=== PATIENT | male | born 1955 | race Caucasian/White ===

== ENCOUNTER → 2020-06-14 09:59 | Outpatient (CLI) | payer MEDICARE, OTHER, SELFPAY ==
[2020-06-14 10:28] LABS: D-Dimer Quantitative (DVT/PE) 0.32 FEU/ug/m (0.27-0.49)
== END ==
PROVIDERS: PCP Family Medicine; Referring Provider Family Medicine; Visit Provider Family Medicine
DX: R07.9 Chest pain, unspecified (principal)
CPT/HCPCS: 85379

== ENCOUNTER → 2023-01-22 | Outpatient (CLI) | payer SELFPAY ==
--- NOTE | 2023-01-22 11:45 | RAD_ITS ---
STUDY: X-RAY - LUMBAR SPINE REASON FOR EXAM: Male, 67 years old. Pain. TECHNIQUE: Thyroid weightbearing view(s) of the lumbar spine were obtained. COMPARISON: None FINDINGS: Normal lumbar lordosis. No substantial scoliosis. Normal alignment of the vertebrae. Diffuse moderate lower thoracic and lumbosacral facet sclerosis. Intervertebral disc space narrowing in the lower thoracic spine and at L4-5 and L5-S1. Osteophytes most marked at T11-T12 and L4-L5. Normal soft tissues. RAD/L/S Spine Min 4 Views IMPRESSION: Mild lower thoracic and lumbosacral spondylosis as described. Electronically Signed: Storm Logan MD at 12:57 EST ,
== END | disposition home or self-care (01) ==
PROVIDERS: PCP Family Medicine; Referring Provider Chiropractor Orthopedic; Visit Provider Chiropractor Orthopedic
DX: M47.814 Spondylosis without myelopathy or radiculopathy, thoracic region (principal); M47.817 Spondylosis without myelopathy or radiculopathy, lumbosacral region
CPT/HCPCS: 72110

== ENCOUNTER 2024-07-22 09:14 | Emergency (ER) | payer MEDICARE, OTHER, SELFPAY ==
[2024-07-22 09:16] VITALS: BP 170/79; PULSE 62; RESP 16; TEMP 36.8; O2SAT 98; BMI 32.4
--- NOTE | 2024-07-22 09:31 | CT_ITS ---
PROCEDURE: BRAIN/HEAD WITHOUT CONTRAST 07/22/2024 REASON FOR EXAM: LIGHTHEADED Dizziness. TECHNIQUE: Head CT without intravenous contrast. Coronal and Sagittal reconstruction series were provided. One or more dose reduction techniques were used (e.g., Automated exposure control, adjustment of the mA and/or kV according to patient size, use of iterative reconstruction technique. RADIATION DOSE SUMMARY: CTDlvol: 44.99 mGy DLP: 812.98 mGycm COMPARISON: None FINDINGS: Brain: Within normal limits for age CSF Spaces: Normal Sinuses/Mastoids: Clear at visualized levels Bones: Unremarkable CT/Brain/Head without Contrast IMPRESSION: NORMAL NONCONTRAST HEAD CT. [facility]
--- NOTE | 2024-07-22 09:32 | EKG12_ITS ---
Test Reason : DIZZINESS Blood Pressure : */* mmHG Vent. Rate : 66 BPM Atrial Rate : 66 BPM P-R Int : 142 ms QRS Dur : 80 ms QT Int : 356 ms P-R-T Axes : 62 32 35 degrees QTcB Int : 373 ms Normal sinus rhythm Normal ECG Confirmed by AMADO BLACKMAN, GERARDO ([id number]), film editor supervisor NGHIA CASTILLO ([id number]) on 07/23/2024 10:26:29 AM Referred By: Confirmed By: GERARDO FISCHER MD
[2024-07-22 09:38] VITALS: BP 144/78; BP 154/93; BP 156/93; PULSE 62; PULSE 65; PULSE 68
[2024-07-22] MEDS: Meclizine HCl 25 MG Tablet PO (09:42)
[2024-07-22] MEDS: 0.9% Normal Saline (1000mL) 1,000 ML 1000 ML IV (09:43)
[2024-07-22] MEDS: Ondansetron 4 MG/2 ML Vial IV (09:43)
--- NOTE | 2024-07-22 09:43 | EX.ED.DYSGE1 ---
HPI History of Present Illness Chief Complaint: Dizziness Narrative Narrative: Chief complaint and HPI: Dizziness. 68-year-old male with past medical history of HTN and HLD presents for evaluation of dizziness. 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 States he was working outside a lot that day. States around 1600 he became dizzy. He describes his dizziness as lightheadedness. Not room spinning. States he intermittently feels woozy. He states he drank 3 cups of coffee yesterday. No water. States he also got fast food with a large soda. Patient states that he has continued to feel intermittently lightheaded which is why he presents for evaluation. He states the lightheadedness is intermittent and not constant. Lightheadedness mostly occurs with intermittent walking. Patient states that he has not ate or drink anything yet today. He denies any fever, chills, headache, vision changes, tinnitus, ear pain, URI symptoms, shortness of breath, chest pain, abdominal pain, vomiting, dysuria, diarrhea, constipation, neurological deficit, weakness, numbness/tingling. States that he gets intermittently nauseous when he gets lightheaded. Denies any syncope. Review of systems: See HPI Medications: As listed on the chart Allergies: As listed on the chart PFSH: Per chart Vital signs: As listed on the chart. Reviewed. Physical exam: Gen: A&O x4, NAD Head: Normocephalic, atraumatic Eyes: No sclera icterus, conjunctiva clear, PERRL, EOMI, no nystagmus, no visual field deficit ENT: Mildly dry mucous membranes, No facial asymmetry Neck: Trachea midline, No JVD, no carotid bruit, full range of motion CV: RRR, no murmurs, no peripheral edema Resp: Lungs CTA BL, no w/r/c GI: Abd soft, non-distended, non-tender, no r/r/g Musc: Full ROM, no deformity, strength +5/5 in all extremities, no pronator drift, no ataxia with gait/finger-nose testing/[id number]-[id number] testing Skin: Warm, dry, intact Neuro: Alert, oriented, grossly intact, sensation intact, no focal deficits Psych: Cooperative, appropriate mood and affect [facility] Medical History (Updated 07/22/24 @ 09:33 by Joaquin Ayala) HTN (hypertension) Home Medications ?Medication ?Instructions ?Recorded ?Last Taken ?Type atorvastatin 10 mg tablet 10 mg PO DAILY cholesterol 07/22/24 07/22/24 History lisinopril 20 mg tablet 20 mg PO DAILY 07/22/24 07/22/24 History Allergy/AdvReac Type Severity Reaction Status Date / Time No Known Allergies Allergy Verified 07/22/24 09:16 Social History Smoking Status: Never smoker EXAM Physical Exam Const Vital Signs: 07/22/24 09:16 07/22/24 09:38 07/22/24 10:29 Temperature 98.3 F Temperature Source Oral Pulse Rate 62 58 L Pulse Rate [Lying] 68 Pulse Rate [Sitting (for 1 minute prior to obtaining)] 62 Pulse Rate [Standing (for 1 minute prior to obtaining)] 65 Respiratory Rate 16 15 Blood Pressure 170/79 H 156/94 H Blood Pressure [Lying] 144/78 H Blood Pressure [Sitting (for 1 minute prior to obtaining)] 156/93 H Blood Pressure [Standing (for 1 minute prior to obtaining)] 154/93 H Blood Pressure Mean 109 114 Blood Pressure Mean [Lying] 100 Blood Pressure Mean [Sitting (for 1 minute prior to obtaining)] 114 Blood Pressure Mean [Standing (for 1 minute prior to obtaining)] 113 Pulse Ox 98 97 Oxygen Delivery Method Room Air 07/22/24 11:00 Temperature Temperature Source Pulse Rate 56 L Pulse Rate [Lying] Pulse Rate [Sitting (for 1 minute prior to obtaining)] Pulse Rate [Standing (for 1 minute prior to obtaining)] Respiratory Rate 18 Blood Pressure 146/83 H Blood Pressure [Lying] Blood Pressure [Sitting (for 1 minute prior to obtaining)] Blood Pressure [Standing (for 1 minute prior to obtaining)] Blood Pressure Mean 104 Blood Pressure Mean [Lying] Blood Pressure Mean [Sitting (for 1 minute prior to obtaining)] Blood Pressure Mean [Standing (for 1 minute prior to obtaining)] Pulse Ox 98 Oxygen Delivery Method Room Air MDM MDM MDM Narrative Medical decision making narrative: 68-year-old male with past medical history of HTN and HLD presents for evaluation of dizziness. Describes the dizziness as lightheadedness and not vertigo. Lightheadedness is intermittent in and not constant. Endorses little p.o. intake and hydration. Denies any associated symptoms other than nausea with the lightheadedness. Differential diagnosis includes but is not limited to dehydration, electrolyte abnormality, orthostatic hypotension, anemia. Low suspicion for UTI, ACS, arrhythmia, intracranial abnormality. Not consistent with CVA. Patient has no ataxia or neurological deficits. Orthostatic vital signs will be obtained. NS bolus, Zofran, meclizine ordered for symptoms. Laboratory workup ordered including CT head and urine. Orthostatic vital signs negative for blood pressure and heart rate however with standing patient did endorse some lightheadedness which she did not have when lying down or sitting. EKG and chest x-ray reviewed see below. CBC without leukocytosis or anemia. BMP unremarkable without significant electrolyte abnormality or CHARLINE. Troponin unremarkable. UA negative for UTI and ketones. CT of the brain shows no acute intracranial abnormality. On reevaluation, patient states his dizziness has almost completely resolved. He ambulated in our emergency department without difficulty. States his dizziness has resolved. I suspect patient's dizziness was likely secondary to mild dehydration given that he has not been drinking much water and drinking a lot of coffee. He is also skipping meals. I told him that he needs to make sure that he is drinking water and eating all his meals. Return precautions explained. Follow-up with PCP. He confirmed understanding of the plan. EKG: Interpreted by me/EM physician: EKG shows normal sinus rhythm without any acute ischemic changes. Heart rate 66. Diagnostic: Interpreted by me/EM physician: Chest x-ray without pneumonia, effusion, cardiomegaly, pneumothorax. Radiology in agreement. Impression: 1. Dizziness, suspect mild dehydration Lab Data Labs: Laboratory Results - last 24 hr 07/22/24 07/22/24 09:26 09:52 WBC 6.0 RBC 5.04 Hgb 15.8 Hct 46.8 MCV 92.9 MCH 31.3 MCHC 33.8 RDW Std Deviation 42.9 RDW Coeff of Cosme 12.5 Plt Count 222 MPV 10.1 Immature Gran % (Auto) 0.300 Neut % (Auto) 50.6 Lymph % (Auto) 34.4 [place] % (Auto) 11.2 H Eos % (Auto) 2.8 Baso % (Auto) 0.7 Absolute Neuts (auto) 3.0 Absolute Lymphs (auto) 2.06 Nucleated RBC % 0 Sodium 139 Potassium 4.5 Chloride 103 Carbon Dioxide 24.9 Anion Gap 11 BUN 16 Creatinine 1.08 Estim Creat Clear Calc 72.79 Est GFR (MDRD) Non-Af 74 BUN/Creatinine Ratio 14.4 Glucose 114 H Calcium 9.5 Troponin T High Sens 11 Urine Color Yellow Urine Clarity Clear Urine pH 6.0 Ur Specific [place] 1.010 Urine Protein Negative Urine Glucose (UA) Normal Urine Ketones Negative Urine Occult Blood 10 H Urine Nitrite Negative Urine Bilirubin Negative Urine Urobilinogen Normal Ur Leukocyte Esterase Negative Urine RBC 0 SEEN Urine WBC 0 SEEN Ur Squamous Epith Cells 0 SEEN Urine Bacteria 0 SEEN Urine Mucus 0 SEEN Radiography Diagnostic Testing: Clinical Impression(s) from Imaging Studies Brain CT 07/22/24 09:31 IMPRESSION: NORMAL NONCONTRAST HEAD CT. Reading Location: [facility] Chest X-Ray 07/22/24 10:05 IMPRESSION: No acute process is identified in the chest. [facility] Dis[facility] Triage Chief Complaint: Dizziness ED Provider: Ted Mendez Dx/Rx/DC Orders Instructions: ED Dizziness, Uncertain Cause Prescriptions: No Action atorvastatin 10 mg tablet 10 mg PO DAILY lisinopril 20 mg tablet 20 mg PO DAILY Primary Care Provider: Suresh Honeycutt Referrals: Suresh Honeycutt MD [Primary Care Provider] - 3-5 Days Activity Restrictions/Additional Instructions: Follow-up with primary care physician. Return back to the ED if symptoms change or worsen. Make sure that you are eating meals and drinking plenty of water. Print Language: Greek Disposition Disposition: Home, Self Care
[2024-07-22 09:54] LABS: Absolute Lymphocyte Count 2.06 X10^3/uL (0.83-4.51); Basophil# 0.04 X10^3/uL; Basophil% 0.7 % (0-1); Eosinophil# 0.17 X10^3/uL; Eosinophils% 2.8 % (0-5); Hematocrit 46.8 % (40-54); Hemoglobin 15.8 g/dL (13.0-16.5); Lymphocyte # 2.06 X10^3/ul (0.83-4.51); Lymphocyte % 34.4 % (19-41); Mean Corp Hgb Conc 33.8 g/dL (32-36); Mean Corpuscular Hgb 31.3 pg (27.0-32.0); Mean Corpuscular Volume 92.9 fL (80-94); Mean Platelet Vol. 10.1 fl (6.2-12.0); Monocyte# 0.67 X10^3/uL; Monocyte% 11.2 % (0-10); NRBC Flagged by Analyzer 0 % (0-5); Neutrophil # 3.03 X10^3/uL (2.7-7.7); Neutrophil % 50.6 % (47-70); Platelet Count 222 K/mm3 (150-450); RBC Distribution Width CV 12.5 % (11.6-14.6); RBC Distribution Width SD 42.9 fl (35.1-43.9); Red Blood Count 5.04 M/mm3 (4.6-6.2)
[2024-07-22 10:00] LABS: Bacteria 0 SEEN /hpf (None Seen); Mucous, Urine 0 SEEN /hpf (<or=2+); Red Blood Cells-Urine 0 SEEN /hpf (0-5); Squamous Epithelial Cells - UA 0 SEEN /hpf (0-5); White Blood Cells 0 SEEN /hpf (0-5)
--- NOTE | 2024-07-22 10:05 | RAD_ITS ---
PROCEDURE: CHEST PA AND LATERAL 07/22/2024 REASON FOR EXAM: LIGHTHEADED TECHNIQUE: Frontal and lateral views of the chest. COMPARISON: None FINDINGS: Heart size and mediastinal configuration are within normal limits. Focal eventration of the right hemidiaphragm is noted. There is no focal infiltrate or consolidation. There is no pneumothorax or effusion. There is no acute bony abnormality. Aortic calcifications are visible. RAD/Chest PA and Lateral IMPRESSION: No acute process is identified in the chest. Reading Location: [facility]
[2024-07-22 10:13] LABS: Color, Urine Yellow (Yellow); Glucose, Dipstick Normal (Normal); Ketone-Dipstick Negative (Negative); Leukocyte Esterase-Dipstick Negative /ul (Negative); Nitrite-Dipstick Negative (Negative); Occult Blood-Urine 10 /ul (Negative); Protein-Dipstick Negative (Negative); Urine Bilirubin Dipstick Negative (Negative); Urine Clarity Clear (Clear); Urine Urobilinogen Normal (Normal)
[2024-07-22 10:29] VITALS: BP 156/94; PULSE 58; RESP 15; O2SAT 97
[2024-07-22 10:43] LABS: Troponin T High Sensitivity 11 ng/L (<=22)
[2024-07-22 10:44] LABS: Anion Gap 11 (5-15); BUN 16 mg/dL (4-19); BUN/Creat Ratio 14.4 RATIO (10-20); Calcium,Total 9.5 mg/dL (7.6-11.0); Carbon Dioxide 24.9 mmol/L (21.0-32.0); Chloride 103 mmol/L (98-108); Creatinine, Serum 1.08 mg/dL (0.70-1.20); EST Glomerular Filtration Rate 74 (>60); Estimated Creatinine Clearance 72.79 ml/min (50-250); Glucose 114 mg/dL (70-99); Potassium 4.5 mmol/L (3.3-5.1); Sodium Level 139 mmol/L (133-145)
[2024-07-22 11:00] VITALS: BP 146/83; PULSE 56; RESP 18; O2SAT 98
[2024-07-22 11:55] VITALS: BP 141/83; PULSE 87; RESP 18; TEMP 36.5; O2SAT 97
== END 2024-07-22 11:56 | disposition home or self-care (01) ==
PROVIDERS: Emergency Provider Surgery; PCP Family Medicine; Visit Provider Surgery
DX: R42 Dizziness and giddiness (principal); I10 Essential (primary) hypertension; E78.5 Hyperlipidemia, unspecified
CPT/HCPCS: 70450; 71046; 80048; 81001; 84484; 85025; 93005; 96361; 96374; 99285; A4216; J2405

== ENCOUNTER 2025-02-14 10:45 | Emergency (ER) | payer MEDICARE, OTHER, SELFPAY ==
[2025-02-14 10:46] VITALS: BP 176/95; PULSE 64; RESP 16; TEMP 36.3; O2SAT 98; BMI 32.1
--- NOTE | 2025-02-14 10:54 | EDS_ITS ---
HPI History of Present Illness Chief Complaint: Dizziness [facility] Medical History (Updated 02/14/25 @ 11:03 by Maura Moore) Skin cancer Hyperlipemia HTN (hypertension) Home Medications ?Medication ?Instructions ?Recorded ?Last Taken ?Type atorvastatin 10 mg tablet 10 mg PO DAILY cholesterol 0 07/22/24 07/22/24 History lisinopril 20 mg tablet 20 mg PO DAILY 07/22/24 05/2 0 History GLYCETRA 1 tab PO DAILY 02/14/25 Unkn own History Allergy/AdvReac Type Severity Reaction Status Date / Time No Known Allergies Allergy Verified 02/14/25 10:50 Family History no significant family his Surgical History (Updated 02/14/25 @ 11:03 by Maura Moore) H/O hernia repair Social History (Updated 02/14/25 @ 11:03 by Maura Moore) household members: spouse housing: house Smoking Status: Never smoker EXAM Physical Exam Const Vital Signs: 02/14/25 10:46 02/14/25 12:30 02/14/25 14:14 Temperature 97.3 F L 98.2 F Temperature Source Oral Pulse Rate 64 65 74 Respiratory Rate 16 14 15 Blood Pressure 176/95 H 143/86 H 132/78 H Blood Pressure Mean 122 105 96 Pulse Ox 98 100 100 Oxygen Delivery Method Room Air MDM MDM MDM Narrative Medical decision making narrative: HISTORY OF PRESENT ILLNESS: Chief complaint: Dizziness 69-year-old male presents with dizziness. Notes fall and head trauma that occurred 2 days prior to arrival. He denies loss of consciousness. Denies taki ng blood thinners. He further states his last known well was greater than 4 hours prior to arrival. He notes no symptoms yesterday but noted the left side of this morning began having dizziness specifically with head movement. Notes he took meclizine this morning no relief. Denies vomiting. Denies bleeding diathesis. Denies chest pain. Denies palpitations or syncope. REVIEW OF SYSTEMS: Pertinent positives: Dizziness, head trauma Pertinent negatives: As per HPI PHYSICAL EXAM: Nursing triage notes reviewed, Vital signs reviewed Constitutional: please see mdm HENT: MMM, atraumatic, no lacs Eyes: Pupils equal round and reactive to light, Extraocular muscles intact Neck: No stridor, no JVD, full neck ROM Lungs: Clear to auscultation, No wheezing or rales. No increased work of b reathing, no conversational dyspnea, no accessory muscle use, no nasal flaring. No respiratory distress noted Heart: Regular rate and rhythm, No murmurs, No rubs and No gallops, 2+ distal pulses (radial, femoral, posterior tibial) in all extremities Abdomen: Soft, there is no tenderness, rigidity, rebound or guarding, no obvious peritoneal signs, no palpable pulsatile abdominal masses, no auscultated abdominal bruit : No CVAT Extremities: No edema Neuro: Alert and oriented x3, neuro exam at baseline, cranial nerves II through XII are intact. No pain with extraocular muscle movement. There is negative test of skew. 5 of 5 strength in upper and lower extremities in flexion extension. Intact sensation to light touch in upper and lower extremity dermatomes. No truncal or extremity ataxia. No dysdiadochokinesia. Normal gait. 2+ reflexes in upper and lower extremities. No meningeal signs. Negative Babinski. NIH of 0. Skin: No rash or lesions noted MEDICAL DECISION MAKING: Chief Complaint: please see HPI External records reviewed: Reviewed CT scan of the brain from July 2024 which shows normal noncontrast head CT Factors affecting care: Hypertension, hyperlipidemia Social determinants of health: denies illicit drug use History obtained from others: Consults: none MDM Narrative: The patient was initially hemodynamically stable, afebrile and nontoxic-appea ring. Neurologic exam intact, NIH of 0. No focal deficit I considered the following differential diagnosis: ICH, CVA, brain mass, cervical spine injury, concussion, vertigo, anemia, electrolyte disturbance, dehydration I obtained a broad lab and imaging workup to further determine if the patient was suffering from a life-threatening etiology. Initially treat the patient dizziness with 0.5 mg IV Versed and a 500 cc fluid bolus ALL IMAGES (IF OBTAINED) HAVE BEEN PERSONALLY REVIEWED AND INTERPRETED BY MYSELF. EKG with normal sinus rhythm rate 63, normal axis, normal intervals, no obvious STEMI or ischemic changes I have personally reviewed the patient's chest x-ray. Chest x-ray is unremarkable for pulmonary edema, pneumothorax, pneumonia or focal cardiopulmonary abnormality. CT/CT of the head and neck shows no evidence of obvious large vessel occlusion, ICH, CVA or mass High-sensitivity troponin is negative, no evidence of myocardial ischemia CBC without leukocytosis, severe anemia, no thrombocytopenia. CMP without evidence of acute kidney injury, significant electrolyte abnormality, anion gap to suggest end organ hypo-perfusion, no evidence of metabolic acidosis with a normal bicarbonate, no evidence of hepatobiliary obstructive pathology. On re-evaluation the patient displayed a normal non-ataxic gait. Repeat neurologic remain intact. Symptoms likely secondary to a post-concussive etiology. The patient and/or family, caregivers express understanding. The patient and/or family, caregivers agrees with the plan. Shared decision making: I will have a discussion with the patient and or visitors regarding risk/benefits of further testing or admission. They will be made aware of of the risk/benefits inherent in this decision they will be given the opportunity to voice understanding. Total critical care time today provided was at least 0 minutes. This excludes separately billable procedures. Critical care time (if documented) is secondary to the patient having high probability of clinically significant/life threatening deterioration in the patient's condition which required my urgent intervention. Impression: 1. Dizziness 2. Closed head injury 3. Concussion Dispo: Discharge home This note was generated with [employer] dictation software. It may contain incorrect words, spelling, and punctuation that were not noted in review of the chart prio r to signing. Lab Data Labs: Laboratory Results - last 24 hr 02/14/25 02/14/25 11:00 12:55 WBC 10.1 RBC 5.03 Hgb 15.7 Hct 45.9 MCV 91.3 MCH 31.2 MCHC 34.2 RDW Std Deviation 41.8 RDW Coeff of Cosme 12.5 Plt Count 259 MPV 9.2 Immature Gran % (Auto) 0.300 Neut % (Auto) 76.1 H Lymph % (Auto) 16.4 L [place] % (Auto) 6.5 Eos % (Auto) 0.5 Baso % (Auto) 0.2 Absolute Neuts (auto) 7.7 Absolute Lymphs (auto) 1.66 Nucleated RBC % 0 Sodium 138 Potassium 4.2 Chloride 102 Carbon Dioxide 26.3 Anion Gap 9 BUN 19 Creatinine 1.01 Estim Creat Clear Calc 76.36 Est GFR (MDRD) Non-Af 80 BUN/Creatinine Ratio 18.4 Glucose 126 H Calcium 9.5 Total Bilirubin 0.64 AST 18 ALT 20 Alkaline Phosphatase 58 Troponin T High Sens 10 D Troponin T Hi Sens 2 Hr 9 Total Protein 7.3 Albumin 4.3 Globulin 2.9 Albumin/Globulin Ratio 1.5 Radiography Diagnostic Testing: Clinical Impression(s) from Imaging Studies Brain CT 02/14/25 11:10 IMPRESSION: No acute intracranial process. Reading Location: [facility] Head/Neck CTA 02/14/25 11:11 IMPRESSION: No acute large vessel occlusion or high-grade stenosis. No large dominant aneurysm. No AVM. Reading Location: [facility] Chest X-Ray 02/14/25 11:40 IMPRESSION: No evidence of acute cardiopulmonary abnormality. Reading Location: [id number] Discharge Plan Triage Chief Complaint: Dizziness ED Provider: Roberth Mcarthur Dx/Rx/DC Orders Instructions: Concussion Dc, ED Dizziness, Uncertain Cause Prescriptions: No Action atorvastatin 10 mg tablet 10 mg PO DAILY lisinopril 20 mg tablet 20 mg PO DAILY GLYCETRA 1 tab PO DAILY Primary Care Provider: Suresh Honeycutt Referrals: Suresh Honeycutt MD [Primary Care Provider, Medical] Activity Restrictions/Additional Instructions: Thank you for trusting us with your care today! Your labs and images are reassuring. Specifically the CT scans of your head and neck showed no signs of stroke or vascular abnormalities. Your labs are reassuring as well. Please increase your fluid intake to avoid dehydration. Please take Tylenol (2 pills, 650 mg), ibuprofen (2 pills, 400 mg) every 6 hours as needed for pain and fever control. Please return to the emergency department if your symptoms change or worsen. Please follow with your primary care physician for further outpatient evaluation and management. Print Language: Marshallese Disposition Disposition: Home, Self Care Discharge Date/Time: 02/14/25 14:21
--- NOTE | 2025-02-14 11:10 | EKG12_ITS ---
Test Reason : Blood Pressure : */* mmHG Vent. Rate : 63 BPM Atrial Rate : 63 BPM P-R Int : 142 ms QRS Dur : 86 ms QT Int : 382 ms P-R-T Axes : 52 32 34 degrees QTcB Int : 390 ms Normal sinus rhythm Normal ECG Confirmed by THEODORE BLACKMAN, ROBERT ([id number]), editorial specialist RICO CUMMINGS ([id number]) on 02/16/2025 6:41:13 AM Referred By: Confirmed By: ROBERT JAIMES MD
--- NOTE | 2025-02-14 11:10 | CT_ITS ---
PROCEDURE: BRAIN/HEAD WITHOUT CONTRAST 02/14/2025 REASON FOR EXAM: DIZZINESS TECHNIQUE: Procedure Code: CTBR Modality: CT Procedure: BRAIN/HEAD WITHOUT CONTRAST Coronal and Sagittal reconstruction series were provided. One or more dose reduction techniques were used (e.g., Automated exposure control, adjustment of the mA and/or kV according to patient size, use of iterative reconstruction technique. RADIATION DOSE SUMMARY: DLP: 570 mGycm COMPARISON: None FINDINGS: There is no acute infarct, intracranial hemorrhage, or mass effect. There is no hydrocephalus or significant midline shift. No acute, depressed calvarial fractures. No large scalp hematomas. The paranasal sinuses are clear. CT/Brain/Head without Contrast IMPRESSION: No acute intracranial process. Reading Location: [id number]
--- NOTE | 2025-02-14 11:11 | CT_ITS ---
PROCEDURE: CTA HEAD AND NECK W/ CONTRAST 02/14/2025 REASON FOR EXAM: DIZZINESS TECHNIQUE: Procedure Code: CTCTA.HDNCK Modality: CT Procedure: CTA HEAD AND NECK W/ CONTRAST Multiplanar Sagittal and Coronal images were obtained. CONTRAST: 100 mL of Isovue 370 One or more dose reduction techniques were used (e.g., Automated exposure control, adjustment of the mA and/or kV according to patient size, use of iterative reconstruction technique). RADIATION DOSE SUMMARY: DLP: 1571 mGycm FINDINGS: The aortic arch demonstrates a type I configuration. The ostia of the great vessels are patent. There is conventional branching. The right CCA is patent. There is no significant stenosis of the right carotid bifurcation by NASCET criteria. The cervical right ICA is patent. The right MCA and right YAA appear patent. There is no large vessel occlusion. The left CCA is patent. There is no significant stenoses at the left carotid bifurcation by NASCET criteria. The cervical left ICA is patent. The left MCA and left YAA appear patent. There is no large vessel occlusion. The right vertebral artery arises from the right subclavian artery. The left vertebral artery arises from the left subclavian artery. Both vertebral arteries are patent. Both vertebral arteries join to form the patent basilar artery. Both posterior cerebral arteries arise from the tip of the basilar. Both proximal STRATEGIC MANAGER segments are patent. There is no large vessel occlusion. There is no enhancing intracranial mass. Shot[place] cervical lymph nodes are identified. The thyroid gland is heterogeneous. The lung apices demonstrate no pneumothorax. No destructive osseous abnormalities identified. CT/CTA Head AND Neck W/ Contrast IMPRESSION: No acute large vessel occlusion or high-grade stenosis. No large dominant aneu rysm. No AVM. Reading Location: [id number]
[2025-02-14] MEDS: Midazolam 2 MG/2 ML Syringe 0.5 MG IV (11:22)
[2025-02-14] MEDS: 0.9% Normal Saline (500mL Bag) 500 ML 1000 ML IV (11:22)
[2025-02-14 11:23] LABS: Hematocrit 45.9 % (40-54); Hemoglobin 15.7 g/dL (13.0-16.5); Immature Granulocytes Count 0.030 X10^3/uL (0.0-0.0); Mean Corp Hgb Conc 34.2 g/dL (32-36); Mean Corpuscular Volume 91.3 fL (80-94); Mean Platelet Vol. 9.2 fl (6.2-12.0); NRBC Flagged by Analyzer 0 % (0-5); Platelet Count 259 K/mm3 (150-450); RBC Distribution Width CV 12.5 % (11.6-14.6); RBC Distribution Width SD 41.8 fl (35.1-43.9); Red Blood Count 5.03 M/mm3 (4.6-6.2); White Blood Count 10.1 K/mm3 (4.4-11.0)
[2025-02-14 11:39] LABS: Troponin T High Sensitivity 10 ng/L (<=22)
--- NOTE | 2025-02-14 11:40 | RAD_ITS ---
PROCEDURE: CHEST 1 VIEW (PORTABLE) 02/14/2025 REASON FOR EXAM: DIZZINESS TECHNIQUE: Frontal view of the chest. COMPARISON: July 22, 2024 FINDINGS: The lungs are adequately aerated bilaterally without pleural effusion, pneumothorax, or focal airspace disease. Stable cardiomediastinal silhouette. Degenerative changes of the shoulders and spine. RAD/Chest 1 View (Portable) IMPRESSION: No evidence of acute cardiopulmonary abnormality. Reading Location: [id number]
[2025-02-14 11:42] LABS: AST(SGOT) 18 U/L (<=37); Alanine Aminotransfer ALT/SGPT 20 U/L (<=46); Albumin, Serum 4.3 g/dL (3.4-4.8); Alkaline Phosphatase 58 U/L (40-129); Anion Gap 9 (5-15); BUN 19 mg/dL (4-19); BUN/Creat Ratio 18.4 RATIO (10-20); Calcium,Total 9.5 mg/dL (7.6-11.0); Carbon Dioxide 26.3 mmol/L (21.0-32.0); Chloride 102 mmol/L (98-108); Estimated Creatinine Clearance 76.36 ml/min (50-250); Globulin 2.9 g/dL (2.2-4.2); Glucose 126 mg/dL (70-99); Potassium 4.2 mmol/L (3.3-5.1)
--- OUTSIDE RECORDS SUMMARY | 2025-02-14 11:49 | XMS RPT_ITS | CCD ---
Author Organization [facility] Care Team Providers Care Geophysical Computer Name Role Phone MASCI, ELDA A Unavailable Unavailable MASCI, ELDA A Unavailable Unavailable MASCI, ELDA A Unavailable Unavailable MASCI, ELDA A Unavailable Unavailable Suresh Olivares MD Primary Care Provider Jac BLACKMAN MD, Sharanung Unavailable Myrna Estrella Unavailable Unavailable Suresh Olivares MD Primary Care Provider Jac BLACKMAN MD, Daesung Unavailable Myrna Olivas RN Unavailable Unavailable Suresh Olivares MD Primary Care Provider Suresh Olivares MD Primary Care Provider Jac BLACKMAN MD, Daesung Unavailable Myrna Olivas RN Unavailable Unavailable Jac BLACKMAN, Sharanung Unavailable Suresh Olivares MD Primary Care Provider Ketan CIGAR HEAD HOLER.Belinda LEE Unavailable Batsheva CIGAR HEAD HOLER.SUPERVISOR TAPING, Joselyn A Unavailable [phone] Dr. Suresh Olivares MD Primary Care Provider [phone] Dr. Ted Mendez DO Emergency Provider Suresh Olivares Primary Care Unavailable Ted Mendez Attending UnavailGIRMA Shin Attending Unavailable SURESH OLIVARES Primary Care Unavailable SURESH OLIVARES Primary Care Unavailable SURESH OLIVARES Referring Unavailable SHAYNA SAAVEDRA Attending Unavailable SURESH OLIVARES Primary Care Unavailable SURESH OLIVARES Referring Unavailable SURESH OLIVARES Primary Care Unavailable SURESH OLIVARES Referring Unavailable EVELYN JORDAN Attending Unavailable SURESH OLIVARES Referring Unavailable SURESH OLIVARES Primary Care Unavailable SURESH OLIVARES Attending Unavailable SURESH OLIVARES Primary Care Unavailable SURESH OLIVARES Attending Unavailable SURESH OLIVARES Primary Care Unavailable SURESH OLIVARES Primary Care Unavailable SURESH OLIVARES Referring Unavailable SURESH OLIVARES Primary Care Unavailable SURESH OLIVARES Referring Unavailable Allergies Allergy Classification Reported Allergen(s) Allergy Type Date of Onset Reaction(s) Facility (20 sources) riTUXimab; Translations: [RITUXIMAB] Drug Allergy 11-30-2017 Other: See Comments, Intolerance [facility] Medications Current Medications Medication Drug Class(es) Dates Sig (Normalized) Sig (Original) amoxicillin 500 mg oral capsule (9 sources) Penicillin-class Antibacterial Start: 04-18-2024 take 1 capsule by mouth three times daily amoxicillin (AMOXIL) 500 mg capsule Take 500 mg by mouth three times a day. 04/18/2024 Active atorvastatin 10 mg oral tablet (20 sources) HMG-CoA Reductase Inhibitor Start: 02-14-2023 End: 06-17-2025 take 1 tablet by mouth once daily at bedtime for hyperlipidemia atorvastatin (LIPITOR) 10 mg tablet Indications: Mixed hyperlipidemia Take 1 tablet by mouth daily at bedtime. For cholesterol. 90 tablet 3 06/17/2024 06/17/2025 Active Comment on above: Take 1 tablet by trevon th daily at bedtime. For cholesterol. lisinopril 20 mg oral tablet (20 sources) Angiotensin Converting Enzyme Inhibitor Start: 05-29-2024 End: 11-25-2024 take 1 tablet by mouth once daily lisinopril (ZESTRIL) 20 mg tablet Indications: Primary hypertension Take 1 tablet by mouth once daily. 90 tablet 1 05/29/2024 11/25/2024 Active Start: 11-07-2023 End: 05-05-2024 take 1 tablet by mouth once daily lisinopril (ZESTRIL) 20 mg tablet Indications: Primary hypertension Take 1 tablet by mouth once daily. 90 tablet 1 11/07/2023 05/05/2024 Active Start: 02-02-2023 End: 08-01-2023 take 1 tablet by mouth once daily lisinopril (ZESTRIL) 20 mg tablet Indications: Primary hypertension Take 1 tablet by mouth once daily. 90 tablet 1 02/02/2023 Active Start: 07-25-2022 End: 02-02-2023 take 1 tablet by mouth once daily lisinopril (ZESTRIL) 10 mg tablet Indications: Primary hypertension Take 1 tablet by mouth once daily. 90 tablet 1 08/02/2022 02/02/2023 Discontinued Start: 05-24-2022 End: 06-23-2022 take 1 tablet by mouth once daily lisinopril (ZESTRIL) 10 mg tablet Indications: Primary hypertension Take 1 tablet by mouth once daily. 30 tablet 1 05/24/2022 06/23/2022 Active Comment on above: Take 1 tablet by trevon th once daily. Magnesium (4 sources) End: 11-24-2021 take 1 tablet by mouth once daily MAGNESIUM ORAL Take 1 tablet by mouth once daily. 0 11/24/2021 Discontinued take 1 tablet by mouth once elliot y MAGNESIUM ORAL Take 1 tablet by mouth once daily. 0 Active Comment on above: Take 1 tablet by trevon th once daily. metFORMIN hydrochloride 1000 mg oral tablet (4 sources) Biguanide Start: 11-20-19 End: 11-25-19 take 1 tablet by mouth once daily at breakfast metFORMIN (GLUCOPHAGE) 1,000 mg tablet Indications: Prediabetes Take 1 tablet by mouth daily with breakfast. 90 tablet 1 11/19/2020 11/24/2021 Discontinued Comment on above: Take 1 tablet by trevon th daily with breakfast. omeprazole 20 mg delayed release oral capsule (5 sources) Proton Pump Inhibitor Start: 03-30-19 End: 11-25-19 take 1 capsule by mouth once daily before breakfast omeprazole (PRILOSEC) 20 mg capsule Indications: Gastroesophageal reflux disease with esophagitis, unspecified whether hemorrhage Take 1 capsule by mouth daily before breakfast. 1/2 hr before meal. 30 capsule 11 03/30/2021 11/24/2021 Discontinued Start: 06-14-2020 End: 09-07-2020 take 1 capsule by mouth once daily before breakfast omeprazole (PRILOSEC) 20 mg capsule Indications: Gastroesophageal reflux disease with esophagitis, unspecified whether hemorrhage Take 1 capsule by mouth daily before breakfast. 1/2 hr before meal. 30 capsule 1 06/14/2020 09/07/2020 Discontinued Comment on above: Take 1 capsule by mo uth daily before breakfast. 1/2 hr before meal. valACYclovir 1000 mg oral tablet (2 sources) Herpesvirus Nucleoside Analog DNA Polymerase Inhibitor, Herpes Simplex Virus Nucleoside Analog DNA Polymerase Inhibitor, Herpes Zoster Virus Nucleoside Analog DNA Polymerase Inhibitor Start: End: take 1 tablet by mouth three times daily valACYclovir (VALTREX) 1 gram tablet Indications: Herpes zoster without complication Take 1 tablet by mouth three times a day for 7 days. 21 tablet 0 09/21/2023 09/28/2023 Active Completed/Discontinued Medications Medication Drug Class(es) Dates Sig (Normalized) Sig (Original) ciclopirox 80 mg/ml topical solution (6 sources) Start: 08-02-2022 End: 05-16-2023 Ciclopirox (LOPROX) 8 % solution Indications: Onychomycosis Apply to affected area daily at bedtime. 6.6 mL 3 08/02/2022 05/16/2023 Discontinued Start: 11-24-2021 End: 05-24-2022 Ciclopirox (LOPROX) 8 % solu tion Indications: Onychomycosis Apply to affected area daily at bedtime. 6.6 mL 3 11/24/2021 05/24/2022 Discontinued (Other) Comment on above: Apply to affected ar ea daily at bedtime. Problems Active Problems Problem Classification Problem Date Documented Date Episodic/Chronic Conditions associated with dizziness or vertigo (3 sources) Lightheadedness; Translations: [Dizziness and giddiness] Onset: 07-22-2024 07-22-2024 Episodic Disorders of lipid metabolism (20 sources) Mixed hyperlipidemia; Translations: [Mixed hyperlipidemia] Onset: 08-09-2016 08-09-2016 Chronic Essential hypertension (20 sources) Essential hypertension; Translations: [Essential (primary) hypertension] Onset: 05-16-2023 Chronic Immunizations and screening for infectious disease (5 sources) Patient encounter status; Translations: [Encounter for immunization] Episodic Neoplasms of unspecified nature or uncertain behavior (3 sources) Neoplastic disease; Translations: [Neoplasm of unspecified behavior of bone, soft tissue, and skin] Onset: 09-23-2024 Episodic Non-Hodgkin's lymphoma (20 sources) Cutaneous follicle center lymphoma, lymph nodes of head, face, and neck; Translations: [Primary cutaneous follicular center B-cell lymphoma] Onset: 05-17-2017 Resolved: 07-09-2024 06-12-2017 Chronic Non-Hodgkin`s lymphoma (11 sources) History of primary cutaneous lymphoma; Translations: [Personal history of non-Hodgkin lymphomas] Onset: 07-09-2024 07-09-2024 Episodic Nonspecific chest pain (1 source) Chest pain; Translations: [Chest pain, unspecified] 06-14-2020 Episodic Other and unspecified benign neoplasm (2 sources) Multiple benign melanocytic nevi ; Translations: [Melanocytic nevi, unspecified] 07-04-2023 Episodic Other and unspecified benign neoplasm (1 source) Melanocytic nevi, unspecified; Translations: [Multiple benign nevi] Onset: 09-23-2024 Episodic Other and unspecified benign neoplasm (1 source) Hemangioma of skin and subcutaneous tissue; Translations: [Shukla angioma] Onset: 09-23-2024 Episodic Other congenital anomalies (20 sources) Congenital posterolateral diaphragmatic hernia; Translations: [Congenital diaphragmatic hernia] Onset: 01-28-2010 01-28-2010 Chronic Other connective tissue disease (1 source) Cramp; Translations: [Cramp and spasm] Episodic Other nervous system disorders (1 source) Other chronic pain; Translations: [Chronic right shoulder pain] Onset: 07-25-2024 Chronic Other nervous system disorders (10 sources) Tremor; Translations: [Tremor, unspecified] Onset: 07-09-2024 07-09-2024 Episodic Other nervous system disorders (1 source) Tremor, unspecified; Translations: [Tremor] Onset: 07-09-2024 Episodic Other non-traumatic joint disorders (7 sources) Chronic pain of right upper limb; Translations: [Pain in right shoulder] Onset: 07-25-2024 07-09-2024 Episodic Other non-traumatic joint disorders (1 source) Pain in right shoulder; Translations: [Chronic right shoulder pain] Onset: 07-25-2024 Episodic Other nutritional; endocrine; and metabolic disorders (20 sources) Obese class I; Translations: [Obesity, unspecified] Onset: 02-10-2019 02-10-2019 Chronic Other nutritional; endocrine; and metabolic disorders (1 source) Obesity, unspecified; Translations: [Obesity, Class I, BMI 30-34.9] Onset: 02-10-2019 Chronic Other screening for suspected conditions (not mental disorders or infectious disease) (2 sources) Encounter for screening for malignant neoplasm of skin; Translations: [Skin exam, screening for cancer] Onset: 07-09-2024 Episodic Other skin disorders (2 sources) Lentiginosis; Translations: [Other melanin hyperpigmentation] 07-04-2023 Episodic Other skin disorders (1 source) Epidermoid cyst; Translations: [Epidermal cyst] 07-04-2023 Episodic Other skin disorders (1 source) Skin tag; Translations: [Other hypertrophic disorders of the skin] 07-04-2023 Episodic Other skin disorders (1 source) Other melanin hyperpigmentation; Translations: [Lentigines] Onset: 09-23-2024 Episodic Other skin disorders (1 source) Other seborrheic keratosis; Translations: [Seborrheic keratosis] Onset: 09-23-2024 Episodic Residual codes; unclassified (20 sources) Obstructive sleep apnea syndrome; Translations: [Obstructive sleep apnea (adult) (pediatric)] Onset: 10-18-2009 01-28-2010 Chronic Residual codes; unclassified (1 source) Obstructive sleep apnea (adult) (pediatric); Translations: [Obstructive sleep apnea] Onset: 01-28-2010 Chronic Residual codes; unclassified (1 source) Pain; Translations: [Pain, unspecified] 09-27-2023 Episodic Superficial injury; contusion (1 source) Abrasion of left hand, subsequent encounter; Translations: [Other specified aftercare] Episodic Thyroid disorders (3 sources) Hypothyroidism; Translations: [Hypothyroidism, unspecified] Onset: 07-24-2024 07-10-2024 Chronic Unclassified (2 sources) Chronic pain of right upper limb 07-09-2024 Unclassified (1 source) Patient encounter status 07-09-2024 Unclassified (1 source) Obesity, Class I, BMI 30-34.9; Translations: [Obesity, Class I, BMI 30-34.9] Onset: 02-10-2019 Viral infection (1 source) Herpes zoster without complication; Translations: [Zoster without complications] 09-21-2023 Episodic Past or Other Problems Problem Classification Problem Date Documented Da te Episodic/Chronic Abdominal hernia (19 sources) Inguinal hernia; Translations: [Unilateral inguinal hernia, without obstruction or gangrene, not specified as recurrent] Onset: 10-31-2010 Resolved: 08-09-2016 08-09-2016 Episodic Abdominal pain (19 sources) Inguinal pain; Translations: [Lower abdominal pain, unspecified] Onset: 02-07-2016 Resolved: 08-09-2016 08-09-2016 Episodic Diabetes mellitus without complication (20 sources) Hyperglycemia; Translations: [Hyperglycemia, unspecified] Onset: 04-14-2010 Resolved: 07-14-2020 04-28-2017 Episodic Genitourinary symptoms and ill-defined conditions (20 sources) Blood in urine; Translations: [Hematuria, unspecified] Onset: 01-28-2010 01-28-2010 Episodic Hemorrhoids (20 sources) Internal hemorrhoids; Translations: [Other hemorrhoids] Onset: 01-28-2010 01-28-2010 Episodic Mycoses (20 sources) Onychomycosis; Translations: [Tinea unguium] Onset: 02-03-2010 Resolved: 08-09-2016 Episodic Other and unspecified benign neoplasm (20 sources) Dysplastic nevus of trunk; Translations: [Melanocytic nevi of trunk] Onset: 09-16-2012 09-16-2012 Episodic Other and unspecified benign neoplasm (8 sources) Melanocytic nevus of face; Translations: [Melanocytic nevi of unspecified part of face] Onset: 09-16-2012 09-16-2012 Episodic Other and unspecified benign neoplasm (20 sources) Melanocytic nevus of skin ; Translations: [Melanocytic nevi of scalp and neck] Onset: 09-16-2012 09-16-2012 Episodic Other and unspecified benign neoplasm (20 sources) Melanocytic nevi of unspecified part of face; Translations: [Benign neoplasm of skin of other and unspecified parts of face] Onset: 09-16-2012 05-16-2023 Episodic Other and unspecified benign neoplasm (20 sources) Senile angioma; Translations: [Hemangioma of skin and subcutaneous tissue] Onset: 09-16-2012 Resolved: 08-09-2016 08-09-2016 Episodic Other injuries and conditions due to external causes (19 sources) Open wound; Translations: [Other injury of unspecified body region, initial encounter] Onset: 01-08-2013 Resolved: 08-09-2016 08-09-2016 Episodic Other skin disorders (19 sources) Inflamed seborrheic keratosis; Translations: [Inflamed seborrheic keratosis] Onset: 09-16-2012 Resolved: 08-09-2016 08-09-2016 Episodic Other skin disorders (20 sources) Seborrheic keratosis; Translations: [Other seborrheic keratosis] Onset: 09-16-2012 Resolved: 08-09-2016 08-09-2016 Episodic Other skin disorders (19 sources) Solar lentigo; Translations: [Other melanin hyperpigmentation] Onset: 09-16-2012 Resolved: 08-09-2016 08-09-2016 Episodic Residual codes; unclassified (19 sources) Family history of diabetes mellitus; Translations: [Family history of diabetes mellitus] Onset: 01-28-2010 Resolved: 08-09-2016 02-28-2021 Episodic Screening and history of mental health and substance abuse codes (2 sources) Encounter for screening for depression; Translations: [Encounter for screening examination for other mental health and behavioral disorders] Onset: 11-16-2023 Episodic Results Test Name Value Interpretation Reference Range Facility [facility] 09-23-2024 CNOV Office Visit ([facility]) ANGEL GONZALES ([id number]) 1955 M Date Time Provider Department 09/23/24 10:10 AM EVELYN JORDAN [facility] During your visit today, we recorded the following information about you: Evelyn Jordan DO 09/23/2024 1:05 PM Signed Established Patient Visit Last Visit Date: 07/04/2023 CC: FBSE HPI: 68 year old male. 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 Skin as above. Physical Exam: Gen: AANDOx3, well appearing Skin exam performed including scalp, face, neck, chest, abdomen, back, arms, hands, legs, feet. Exam with noted findings of: -Scattered normal appearing brown macules and papules with reassuring features on dermoscopy -Trunk: scattered small red papules -Face, neck, trunk, UE with scattered ramirez-brown macules in sun-exposed distribution -Trunk, UE, LE with scattered warty brown stuck-on papules -Scalp clear today -No cervical, submandibular, axillary, or inguinal lymphadenopathy appreciated on exam today. -6 mm erythematous papule on L top of scalp Assessment/Plan: ASSESSMENT/PLAN: 1. Skin exam, screening for cancer - ICD9: V76.43, ICD10: Z12.83 (primary diagnosis) -The ABCD's of melanoma were discussed. The patient is to perform monthly self exams and follow-up in dermatology for skin exams every year. If any new lesions then the patient shall return sooner. Recommended SPF of 30 or greater. 2. 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 Primary cutaneous lymphoma (HCC) - ICD9: 202.10, ICD10: C85.99 -No evidence of recurrence -Continue Follow up with Heme/Onco 4. Neoplasm of skin - ICD9: 239.2, ICD10: D49.2 -Shave Biopsy: The risks, benefits, indications, alternatives, and complications were discussed, and informed consent was obtained. Specifically, the expectation of a permanent scar and risk of possible infection were explained and understood. If the procedure were to be declined, the lesion could not be evaluated microscopically for diagnosis or abnormality, including cancer. Verbal consent was obtained. -See procedure notes. -SURGICAL PATHOLOGY 5. Multiple benign nevi - ICD9: 216.9, ICD10: D22.9 -Explanation of these lesions were dicussed. Benign reassurance was given. -If lesion should change, grow, darken, bleed, etc then discussed with patient to call and return to the office. 6. Lentigines - ICD9: 709.09, ICD10: L81.4 -Explanation of these lesions were dicussed. Benign reassurance was given. 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 Benign reassurance was given. 8. Seborrheic keratosis - ICD9: 702.19, ICD10: L82.1 -Explanation of these lesions were dicussed. Benign reassurance was given. Procedures: Tangential biopsy via shave technique: A.) Left top of Scalp: R/O BCC vs SCC vs Lymphoma (Hx of B cell lymphoma) - Tangential biopsy by shave. The risks, benefits, indications, alternatives, and complications were discussed, and informed consent was obtained. Specifically, the expectation of a permanent scar and risk of possible infection were explained and understood. If the procedure were to be declined, the lesion could not be evaluated microscopically for diagnosis or abnormality, including cancer. In accordance with the [facility] policy, pre-procedure time out was performed to verify the correct patient, procedure, site, positioning, and implant(s) or special equipment. Site(s) were cleaned with alcohol and anesthetized with 1% lidocaine with epinephrine. Tangential biopsy via shave technique was performed. Hemostasis was obtained with aluminum chloride and/or electrocautery. Petrolatum and bandage were applied. The patient tolerated the procedure well without complications and with minimal blood loss. Written wound care instructions were reviewed and given. Specimen(s) sent to pathology. UNIVERSAL PROTOCOL / SAFETY CHECKLIST Procedure to be Performed: shave biopsy Sign In: A Moment of CARE was completed. Appropriate PPE (Personal Protective Equipment) worn by all providers involved with the procedure. Special equipment utilized . Patient/Surrogate Stated/Verified: Time Out: Relevant labs, photos, and/or imaging studies Intended patient and procedure match the source document(s) (e.g. (more content not included)... [facility] Pathology biopsy report Floyd (Tiss)on 09-23-2024 AP DISCLAIMER [facility] Comment on above: Order Comment: Speci men Type: TISSUE SPECIMENOrdering Facility: [facility] Address: [address] [place] [address] Result Comment: Stella watkins Developed Test (LDT) Disclaimer: Performance characteristics of immunohistochemical, immunofluorescent, and chromogenic in-situ hybridization tests have been determined by the performing laboratory within [facility] Pathology and Laboratory Medicine Department ([facility], [facility], [facility], [facility], [facility], [facility], or [facility]) in a manner consistent with CLIA requirements. One or more of these tests may not have been cleared or approved by the FDA. [facility] is regulated under CLIA as qualified to perform high-complexity testing. These tests are used for clinical purposes. These should not be regarded as investigational or for research. Positive and negative controls stain appropriately. Performed By: #### 6 6121-5 ####[facility] LABIA [id number] [place] [address] [place] CASE REPORT [facility] Comment on above: Order Comment: Speci men Type: TISSUE SPECIMENOrdering Facility: [facility] Address: [address] [place] [address] Result Comment: Surg [facility] Pathology Report Case: [id number] Authorizing Provider: Evelyn Jordan DO Collected: 09/23/2024 05:05 PM Ordering Location: Dermatology [facility] Received: 09/23/2024 09:00 PM Pathologist: Char Lyle MD Specimen: Skin, Shave Biopsy, A) L top of scalp Performed By: #### 6 6121-5 ####[facility] LABIA [id number] [place] [address] [place] CLINICAL HISTORY r/o ak vs scc vs bcc vs lymphoma (patient has history of scalp lymphoma) [facility] Comment on above: Order Comment: Demar campbell Type: TISSUE SPECIMENOrdering Facility: [facility] Address: [address] [place] [address] Performed By: #### 6 6121-5 ####[facility] [place] LABCLIA [id number] [address] STATES [place] FINAL DIAGNOSIS [facility] Comment on above: Order Comment: Speci men Type: TISSUE SPECIMENOrdering Facility: [facility] Address: [address] [place] [address] Result Comment: Jamel zamora, left top of scalp, shave biopsy: - Melanocytic nevus, predominantly intradermal type. SR/BJ 09/25/2024 at 1655 EDT Performed By: #### 6 6121-5 ####[facility] [place] LABCLIA [id number] [address] STATES OF [facility] FINAL PERFORMING LAB [facility] Comment on above: Order Comment: Speci men Type: TISSUE SPECIMENOrdering Facility: [facility] Address: [address] [place] [address] Result Comment: Diag nostic interpretation performed at: [facility], [address] [place] [address] CLIA# [id number] Customer Loyalty Representative: Eduardo Pérez MD Performed By: #### 6 6121-5 ####[facility] [place] LABCLIA [id number] [address] STATES [place] GROSS DESCRIPTION [facility] Comment on above: Order Comment: Speci men Type: TISSUE SPECIMENOrdering Facility: [facility] Address: [address] [place] [address] Result Comment: Shayna. Juanpablo zamora, Shave Biopsy Received in formalin is a 0.6 x 0.5 x 0.1 cm shave of skin. On the skin surface there is a 0.6 cm ramirez, slightly thickened area. The specimen is bisected. Totally submitted in one cassette. [facility] September 24, 2024 7:59 AM Gross examination performed at [facility], [address] [place] [address] Performed By: #### 6 6121-5 ####[facility] [place] LABCLIA [id number] [address] [place] [id number] 07-25-2024 [id number] [facility] ID: [id number] Author: SHAYNA SAAVEDRA PT Service: ? Author Type: Physical Therapist Type: [id number] Filed: 07/25/2024 08:24 Note Text: [facility] and Sports [facility] Physical Therapy Plan of Care Certification Patient Name: Angel Gonzales : 1955 [facility] #: [id number] Date: 07/25/2024 To: Suresh Olivares MD From Therapist: Shayna Saavedra PT RE: Patient Certification/ Recertification Your review, approval and electronic signature are required in order to comply with Payor: MEDICARE / Plan: MEDICARE A AND B / Product Type: Medicare / regulations. The identified Physical Therapy PLAN OF CARE for the patient is as follows: M25.511, G89.29 Chronic right shoulder pain (primary encounter diagnosis) PLAN OF CARE: Assessment: Angel Gonzales presents with diagnosis of chronic right shoulder pain that interferes with reaching behind back . The patient presents with impairments in ADL's, flexibility, independence in exercise, joint mobility, overall function, patient reported outcome measures, posture, range of motion, symptom management, and tissue tenderness. PROMIS? (Patient-Reported Outcomes Measurement Information System) scores were reviewed and identified as a rehabilitation concern. Prognosis for therapy is Good due to: current objective clinical presentation . The patient will benefit from skilled therapy services to meet the goals established for this plan of care as noted below. Goals for Episode of Care: established 07/25/24 [place] in home exercise program. Patient will increase active ROM of R shoulder FE to to 170 or greater without increased symptoms to allow pt to to improve postural alignment and to improve performance of ADLs. Patient will increase flexibility of R shoulder UT to WNL to improve ability to maintain proper posture, improve mechanics, and decrease pain. Perform reaching behind the back with decreased report of symptoms/pain in 6 weeks. Improve postural awareness. Patient Goals: reduce R shoulder pain Time Frame for Goals and Treatment : 09/05/24 Planned Interventions, Frequency, and Duration: Current Frequency: 1x/week Duration: 6 weeks Total Number of Visits Planned: 6 Planned Treatment Interventions: Gait Training (45915), Self-half-way management (30950), Therapeutic activities (71915), Manual therapy (73879), Therapeutic exercise (71755), Neuromuscular re-education (49198) PLAN FOR NEXT VISIT: assess symptom response to R shoulder AAROM with wand. PT requested vestibular order through Epic from referring provider Patient demonstrates good understanding of plan of care and treatment. The above goals and plan of care were discussed and agreed upon by patient/family. For further details regarding this patient refer to the Physical Therapy electronically documented visit dated 07/25/2024. Provider Attestation I have reviewed the treatment plan for Angel Shayna Gonzales, [facility]# [id number] for the period of 07/25/24 -- 09/05/24, established on 07/25/2024. Signature certifies the need for therapy services. Normal [facility]GEL [facility] ([id number]) 1955 M Date Time Provider Department 07/25[facility] During your visit today, we recorded the following information about you: Suresh Olivares MD 07/25/2024 12:28 PM Signed Therapy requested. Allergies As of Date: 07/25/2024 Noted Allergy Reaction RITUXAN (RITUXIMAB) 11/30/2017 5 - Intolerance Comments: See infusion note 11/30/2017 Date Reviewed: 07/09/2024 Reviewed by: Rosa London LPN - Fully Assessed Reason for Visit: Results [95] Primary Visit Diagnosis:Lightheaded [R42] Order(s):CONSULT TO PHYSICAL THERAPY [9097] Order #: [id number]: 1 FUTURE Prescriptions as of 07/25/2024 - amoxicillin (AMOXIL) 500 mg capsule Take 500 mg by mouth three times a day. - atorvastatin (LIPITOR) 10 mg tablet Take 1 tablet by mouth daily at bedtime. For cholesterol. - lisinopril (ZESTRIL) 20 mg tablet Take 1 tablet by mouth once daily. Meds Comments as of 03/14/2011: No meds 03/14/2011 Problem List As Of Date 07/25/2024 Noted Resolved Obstructive sleep apnea [G47.33] 10/18/2009 Hematuria [R31.9] 01/28/2010 Hemorrhoids, internal [K64.8] 01/28/2010 Fam hx-diabetes mellitus 01/28/2010 08/09/2016 Bochdalek hernia [Q79.0] 01/28/2010 Dermatophytosis of nail [B35.1] 02/03/2010 08/09/2016 Impaired fasting glucose [R73.01] 04/14/2010 07/14/2020 Inguinal hernia without mention of obstruction *10/31/2010 08/09/2016 Irritated//Inflamed Seborrheic Keratosis [L82.0]09/16/2012 08/09/2016 Atypical nevus of back [D22.5] 09/16/2012 Melanocytic nevi of face [D22.30] 09/16/2012 Melanocytic nevi of scalp and neck [D22.4] 09/16/2012 Other seborrheic keratosis [L82.1] 09/16/2012 08/09/2016 Solar lentigo [L81.4] 09/16/2012 08/09/2016 Shukla angioma [D18.01] 09/16/2012 08/09/2016 Open wound(s) (multiple) of unspecified site(s)*01/08/2013 08/09/2016 Unilateral groin pain [R10.30] 02/07/2016 08/09/2016 Mixed hyperlipidemia [E78.2] 08/09/2016 Hyperglycemia [R73.9] 04/28/2017 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/09/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] 11/13/2017 07/09/2024 Obesity, Class I, BMI 30-34.9 [E66.811] 02/10/2019 Primary hypertension [I10] 05/16/2023 History of primary cutaneous lymphoma [Z85.72] 07/09/2024 Tremor [R25.1] 07/09/2024 Chronic right shoulder pain [M25.511, G89.29] 07/25/2024 Encounter Status:Closed by ROSA LONDON on 07/25/24 [facility] CNTHERAPYon 07-25-2024 CNTHERAPY OT/PT/Speech Visit (PTWS) ANGEL GONZALES ([id number]) 1955 M Date Time Provider Department 07/25/24 7:45 AM SHAYNA SAAVEDRA PTWS Date Time Provider Department Center 07/25/2024 7:45 AM [id number] SAAVEDRA PTWS [facility] Reason for Visit: PT Eval [747] Primary Visit Diagnosis:Chronic right shoulder pain [M25.511, G89.29] Allergies As of Date: 07/25/2024 Noted Allergy Reaction RITUXAN (RITUXIMAB) 11/30/2017 5 - Intolerance Comments: See infusion note 11/30/2017 Date Reviewed: 07/09/2024 Reviewed by: Rosa London LPN - Fully Assessed Prescriptions as of 07/25/2024 - amoxicillin (AMOXIL) 500 mg capsule Take 500 mg by mouth three times a day. - atorvastatin (LIPITOR) 10 mg tablet Take 1 tablet by mouth daily at bedtime. For cholesterol. - lisinopril (ZESTRIL) 20 mg tablet Take 1 tablet by mouth once daily. Meds Comments as of 03/14/2011: No meds 03/14/2011 Human Resources Leader: Therapy (PT/OT/Speech/Resp) ID: [id number] 07/25/2024 7:59 AM Author: SHAYNA SAAVEDRA Signed by SHAYNA SAAVEDRA PT on 07/25/2024 at 7:59 AM Document text: Program_ID:[id number] Access Code: [email or web address] URL: https://[employer]/ Date: 07-25-2024 Prepared By: Shayna Saavedra Program Notes Exercises - Seated Scapular Retraction - 3 x daily - 7 x weekly - 2 sets - 15 reps - Standing Shoulder Extension with Dowel - 3 x daily - 7 x weekly - 2 sets - 10 reps - Standing Shoulder Internal Rotation AAROM with Dowel - 3 x daily - 7 x weekly - 2 sets - 10 reps - Standing Shoulder External Rotation AAROM with Dowel - 3 x daily - 7 x weekly - 2 sets - 10 reps - Standing Bilateral Shoulder Internal Rotation AAROM with Dowel - 3 x daily - 7 x weekly - 2 sets - 10 reps ----- Normal [facility] Panel Informationon 07-25 Interpretation and review of laboratory results Normal [facility] T3, FREEon 07-25-2024 Free T3 [Mass/Vol] 3.1 pg/mL 2.3 - 4.1 pg/mL [facility] T4 FREE/FREE THYROXINEon Free T4 [Mass/Vol] 0.9 ng/dL 0.9 - 1.7 ng/dL [facility] THERAPY NTon 07-25-2024 THERAPY NT HNO ID: [id number] Author: SHAYNA SAAVEDRA, PT Service: ? Author Type: Physical Therapist Type: Therapy (PT/OT/Speech/Resp) Filed: 07/25/2024 07:59 Note Text: Program_ID:[id number] Access Code: [email or web address] URL: https://[employer]/ Date: 07-25-2024 Prepared By: Shayna Saavedra Program Notes Exercises - Seated Scapular Retraction - 3 x daily - 7 x weekly - 2 sets - 15 reps - Standing Shoulder Extension with Dowel - 3 x daily - 7 x weekly - 2 sets - 10 reps - Standing Shoulder Internal Rotation AAROM with Dowel - 3 x daily - 7 x weekly - 2 sets - 10 reps - Standing Shoulder External Rotation AAROM with Dowel - 3 x daily - 7 x weekly - 2 sets - 10 reps - Standing Bilateral Shoulder Internal Rotation AAROM with Dowel - 3 x daily - 7 x weekly - 2 sets - 10 reps Normal [facility] THYROID STIMULATING HORMONEo n 07-25-2024 TSH Qn 5.16 m[IU]/L High [facility] TSH Qnon 07-25-2024 Interpretation and review of laboratory results Abnormal [facility] T3Free SerPl-mCncon 07-25-19 25 Free T3 [Mass/Vol] 3.1 pg/mL Normal 2.3-4.1 [facility] Comment on above: Order Comment: Speci men Type: BLOOD SPECIMENOrdering Facility: [facility] Address: [address] [place] [address] Performed By: #### 3 051-0, 3024-7, 3016-3 ####[facility] LABCLIA [id number] [place] [address] [place] T4 Free SerPl-mCncon 025 Free T4 [Mass/Vol] 0.9 ng/dL Normal 0.9-1.7 [facility] Comment on above: Order Comment: Speci men Type: BLOOD SPECIMENOrdering Facility: [facility] Address: [address] [place] [address] Performed By: #### 3 051-0, 3024-7, 3016-3 ####[facility] LABCLIA [id number] [place] [address] [place] TSH SerPl-aCncon 07-24-2024 TSH Qn 5.160 m[IU]/L High 0.270-4.200 [facility] Comment on above: Order Comment: Speci men Type: BLOOD SPECIMENOrdering Facility: [facility] Address: [address] [place] [address] Performed By: #### 3 051-0, 3024-7, 3016-3 ####[facility] LABCLIA [id number] [facility] [address] [address] [place] 12 Lead EKGon 07-22-2024 12 Lead EKG [facility] Cardiovascular Services [address] [place] [address] 12 Lead EKG 07/22/24 0939 MR#: [id number] Acct: [id number] Name: ANGLE GONZALES Rep #: [id number] : 1955 68 From: Michael Infante MD Attending Dr: Status: DEP ER Ordering Dr: Ted Mendez DO Date: 5 Location: ED Sex: M C Admitted: Test Reason : DIZZINESS Blood Pressure : */* mmHG Vent. Rate : 66 BPM Atrial Rate : 66 BPM P-R Int : 142 ms QRS Dur : 80 ms QT Int : 356 ms P-R-T Axes : 62 32 35 degrees QTcB Int : 373 ms Normal sinus rhythm Normal ECG Confirmed by MICHAEL INFANTE MD ([id number]), associate entertainment editor NGHIA CASTILLO ([id number]) on 07/23/2024 10:26:29 AM Referred By: Confirmed By: MICHAEL INFANTE MD 07/23/24 1026 Date Michael Infante MD CC: Dr. Ted Mendez DO; Dr. Suresh Olivares MD Signed Normal [facility] Absolute lymphocyte countOrd ered By: Ted Mendez on 07-22-2024 Lymphocytes Auto (Unsp spec) [#/Vol] 2.06 10*3/uL 0.83-4.51 [facility] Absolute neutrophil countOrd ered By: Ted Mendez on 07-22-2024 Neutrophils (Bld) [#/Vol] 3.0 10*3/uL 2.0-7.7 [facility] Anion gap in Serum or Plasma Ordered By: Ted Mendez on 07-22-2024 Anion gap [Moles/Vol] 11 mmol/L - [facility] Automated lymphocyte count a s percentage of total leukocytesOrdered By: Ted Mendez on 07-22-2024 Lymphocytes/100 WBC Auto (Unsp spec) 34.4 % [facility] BUN/creatinine ratioOrdered By: Ted Mendez on 07-22-2024 Urea nitrogen/Creatinine [Mass ratio] 14.4 mg/mg 12-22 [facility] Basic Metabolic Profile (BMP )on 07-22-2024 BUN/CRE 14.4 RATIO Normal 12-22 [facility] Comment on above: Performed By: #### L 100.0100, L500.2500 #### [facility] [address] [place], [address] Calcium [Mass/Vol] 9.5 mg/dL Normal 7.6-11.0 [facility] Comment on above: Performed By: #### L 100.0100, L500.2500 #### [facility] [address] [place], [address] Chloride [Moles/Vol] 103 mmol/L Normal 98-108 [facility] Comment on above: Performed By: #### L 100.0100, L500.2500 #### [facility] [address] [place], [address] CO2 [Moles/Vol] 24.9 mmol/L Normal 21.0-32.0 [facility] Comment on above: Performed By: #### L 100.0100, L500.2500 #### [facility] [address] [place], [address] Creatinine [Mass/Vol] 1.08 mg/dL Normal 0.70-1.20 [facility] Comment on above: Performed By: #### L 100.0100, L500.2500 #### [facility] [address] [place], [address] ECRCL 72.79 ml/min Normal 50-250 [facility] Comment on above: Performed By: #### L 100.0100, L500.2500 #### [facility] [address] [place], [address] GAP 11 Normal 5-15 [facility] Comment on above: Performed By: #### L 100.0100, L500.2500 #### [facility] [address] [place], [address] GFR/1.73 sq M.predicted among non-blacks MDRD (S/P/Bld) [Vol rate/Area] 74 mL/min/{1.73_m2} Normal >60 [facility] Comment on above: Result Comment: mL/m in/1.73m2 CKD-EPI Creatinine Equation (2020) Performed By: #### L 100.0100, L500.2500 #### [facility] [address] [place], [address] Glucose [Mass/Vol] 114 mg/dL High 70-99 [facility] Comment on above: Performed By: #### L 100.0100, L500.2500 #### [facility] [address] [place], [address] Potassium [Moles/Vol] 4.5 mmol/L Normal 3.3-5.1 [facility] Comment on above: Performed By: #### L 100.0100, L500.2500 #### [facility] [address] [place], [address] Sodium [Moles/Vol] 139 mmol/L Normal 133-145 [facility] Comment on above: Performed By: #### L 100.0100, L500.2500 #### [facility] [address] [place], [address] Urea nitrogen [Mass/Vol] 16 mg/dL Normal 4-19 [facility] Comment on above: Performed By: #### L 100.0100, L500.2500 #### [facility] [address] [place], [address] Basophil percentageOrdered B y: Ted Mendez on 07-22-2024 Basophils/100 WBC (Bld) 0.7 % 0-1 [facility] Bilirubin Test strip Ql (U)O rdered By: Ted Mendez on 07-22-2024 Bilirubin Ql (U) Negative Negative [facility] Brain/Head without Contrasto n 07-22-2024 Brain/Head without Contrast [facility] Imaging Services [address] [place], [place] [address] Brain/Head without Contrast MR#: [id number] Acct: [id number] Name: ANGEL GONZALES Rep #: [id number] : 1955 M 68 From: Shiv elliott MD PCP: Dr. Suresh Olivares MD Status: REG ER Study: Brain/Head without Contrast Date of Exam: 07/04 Exam# [id number] Ordering Dr: Ted Mendez DO PROCEDURE: BRAIN/HEAD WITHOUT CONTRAST 07/22/2024 REASON FOR EXAM: LIGHTHEADED Dizziness. TECHNIQUE: Head CT without intravenous contrast. Coronal and Sagittal reconstruction series were provided. One or more dose reduction techniques were used (e.g., Automated exposure control, adjustment of the mA and/or kV according to patient size, use of iterative reconstruction technique. RADIATION DOSE SUMMARY: CTDlvol: 44.99 mGy DLP: 812.98 mGycm COMPARISON: None FINDINGS: Brain: Within normal limits for age CSF Spaces: Normal Sinuses/Mastoids: Clear at visualized levels Bones: Unremarkable CT/Brain/Head without Contrast IMPRESSION: NORMAL NONCONTRAST HEAD CT. Reading Location: [place] [address] CC: Dr. Ted Mendez DO; Dr. Suresh Olivares MD Cutter Down: Signed Normal [facility] CBC W/Diff, Automatedon 07-04 Absolute Lymph 2.06 X10 3/uL Normal 0.83-4.51 [facility] Comment on above: Performed By: #### L 100.0100, L500.2500 #### [facility] [address] [place], [address] Absolute Neut 3.0 X10 3/uL Normal 2.0-7.7 [facility] Comment on above: Performed By: #### L 100.0100, L500.2500 #### [facility] [address] [place], [address] Basophils/100 WBC (Bld) 0.7 % Normal 0-1 [facility] Comment on above: Performed By: #### L 100.0100, L500.2500 #### [facility] [address] [place], [address] Eosinophils/100 WBC (Bld) 2.8 % Normal 0-5 [facility] Comment on above: Performed By: #### L 100.0100, L500.2500 #### [facility] [address] [place], [address] Erythrocyte distribution width (RBC) [Ratio] 12.5 % Normal 11.6-14.6 [facility] Comment on above: Performed By: #### L 100.0100, L500.2500 #### [facility] [address] [place], [address] Hematocrit (Bld) [Volume fraction] 46.8 % Normal 40-54 [facility] Comment on above: Performed By: #### L 100.0100, L500.2500 #### [facility] [address] [place], [address] Hemoglobin (Bld) [Mass/Vol] 15.8 g/dL Normal 13.0-16.5 [facility] Comment on above: Performed By: #### L 100.0100, L500.2500 #### [facility] [address] [place], [address] IG% 0.300 Normal 0.0-0.9 [facility] Comment on above: Result Comment: IG% - Immature Granulocytes (promyelocytes, myelocytes and metamyelocytes) > 1% indicates that a LEFT SHIFT is Present. Performed By: #### L 100.0100, L500.2500 #### [facility] [address] [place], [address] Lymphocytes/100 WBC (Bld) 34.4 % Normal 19-41 [facility] Comment on above: Performed By: #### L 100.0100, L500.2500 #### [facility] [address] [place], [address] MCH (RBC) [Entitic mass] 31.3 pg Normal 27.0-32.0 [facility] Comment on above: Performed By: #### L 100.0100, L500.2500 #### [facility] [address] [place], [address] MCHC (RBC) [Mass/Vol] 33.8 g/dL Normal 32-36 [facility] Comment on above: Performed By: #### L 100.0100, L500.2500 #### [facility] [address] [place], [address] MCV (RBC) [Entitic vol] 92.9 fL Normal 80-94 [facility] Comment on above: Performed By: #### L 100.0100, L500.2500 #### [facility] [address] [place], [address] Monocytes/100 WBC (Bld) 11.2 % High 0-10 [facility] Comment on above: Performed By: #### L 100.0100, L500.2500 #### [facility] [address] [place], [address] Neutrophils/100 WBC (Bld) 50.6 % Normal 47-70 [facility] Comment on above: Performed By: #### L 100.0100, L500.2500 #### [facility] [address] [place], [address] Nucleated RBC (Bld) [#/Vol] 0 10*3/uL Normal 0-5 [facility] Comment on above: Performed By: #### L 100.0100, L500.2500 #### [facility] [address] [place], [address] Platelet mean volume (Bld) [Entitic vol] 10.1 fL Normal 6.2-12.0 [facility] Comment on above: Performed By: #### L 100.0100, L500.2500 #### [facility] [address] [place], [address] Platelets (Bld) [#/Vol] 222 10*3/uL Normal 150-450 [facility] Comment on above: Performed By: #### L 100.0100, L500.2500 #### [facility] [address] [place], [address] RBC (Bld) [#/Vol] 5.04 10*6/uL Normal 4.6-6.2 [facility] Comment on above: Performed By: #### L 100.0100, L500.2500 #### [facility] [address] [place], [address] RDW SD 42.9 fl Normal 35.1-43.9 [facility] Comment on above: Performed By: #### L 100.0100, L500.2500 #### [facility] [address] [place], [address] WBC (Bld) [#/Vol] 6.0 10*3/uL Normal 4.4-11.0 [facility] Comment on above: Performed By: #### L 100.0100, L500.2500 #### [facility] [place], [address] [facility] 07-22-2024 CN Office Visit (UCWSTR ) ANGEL GONZALES ([id number]) 1955 M Date Time Provider Department 07/22/24 9:00 AM GIRMA MICHELLE [facility] During your visit today, we recorded the following information about you: Girma Michelle APRN.SUPERVISOR TAPING 07/22/2024 9:02 AM Signed Patient says last night he started feeling lightheaded and dizzy and unsteady. Said that he took a hot shower felt a little better. Patient says his checked his blood pressure and said it was high for what his normal is but patient cannot remember. Patient says he has never had this feeling before. Patient did try to sleep it off. Patient says when he got up today he kind of felt like a drunk man walking in his words. Patient says it does not seem to be going away. At this time due to symptoms and age and increased risk factors patient is being referred to the ER for more thorough workup. Patient was agreeable and does want to take himself. He does not appear in distress at this moment. Allergies As of Date: 07/22/2024 Noted Allergy Reaction RITUXAN (RITUXIMAB) 11/30/2017 5 - Intolerance Comments: See infusion note 11/30/2017 Date Reviewed: 07/09/2024 Reviewed by: Rosa London LPN - Fully Assessed Primary Visit Diagnosis:Light headed [R42] Prescriptions as of 07/22/2024 - amoxicillin (AMOXIL) 500 mg capsule Take 500 mg by mouth three times a day. - atorvastatin (LIPITOR) 10 mg tablet Take 1 tablet by mouth daily at bedtime. For cholesterol. - lisinopril (ZESTRIL) 20 mg tablet Take 1 tablet by mouth once daily. Meds Comments as of 03/14/2011: No meds 03/14/2011 Problem List As Of Date 07/22/2024 Noted Resolved Obstructive sleep apnea [G47.33] 10/18/2009 Hematuria [R31.9] 01/28/2010 Hemorrhoids, internal [K64.8] 01/28/2010 Fam hx-diabetes mellitus 01/28/2010 08/09/2016 Bochdalek hernia [Q79.0] 01/28/2010 Dermatophytosis of nail [B35.1] 02/03/2010 08/09/2016 Impaired fasting glucose [R73.01] 04/14/2010 07/14/2020 Inguinal hernia without mention of obstruction *10/31/2010 08/09/2016 Irritated//Inflamed Seborrheic Keratosis [L82.0]09/16/2012 08/09/2016 Atypical nevus of back [D22.5] 09/16/2012 Melanocytic nevi of face [D22.30] 09/16/2012 Melanocytic nevi of scalp and neck [D22.4] 09/16/2012 Other seborrheic keratosis [L82.1] 09/16/2012 08/09/2016 Solar lentigo [L81.4] 09/16/2012 08/09/2016 Shukla angioma [D18.01] 09/16/2012 08/09/2016 Open wound(s) (multiple) of unspecified site(s)*01/08/2013 08/09/2016 Unilateral groin pain [R10.30] 02/07/2016 08/09/2016 Mixed hyperlipidemia [E78.2] 08/09/2016 Hyperglycemia [R73.9] 04/28/2017 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/09/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] 11/13/2017 07/09/2024 Obesity, Class I, BMI 30-34.9 [E66.811] 02/10/2019 Primary hypertension [I10] 05/16/2023 History of primary cutaneous lymphoma [Z85.72] 07/09/2024 Tremor [R25.1] 07/09/2024 Encounter Status:Closed by GIRMA MICHELLE on 07/22/24 Normal [facility] Carbon dioxide, total [Moles /volume] in Central venous bloodOrdered By: Ted Mendez on 07-22-2024 CO2 [Moles/Vol] 24.9 mmol/L 21.0-32.0 [facility] Chest PA and Lateralon 07-22 Chest PA and Lateral [facility] Imaging Services [address] [place] [address] Chest PA and Lateral MR#: [id number] Acct: [id number] Name: ANGEL GONZALES Rep #: [id number] : 1955 M 68 From: Mundo Pérez MD PCP: Dr. Suresh Olivares MD Status: REG ER Study: Chest PA and Lateral Date of Exam: 07/22/24 Exam# [id number] Ordering Dr: Ted Mendez DO PROCEDURE: CHEST PA AND LATERAL 07/22/2024 REASON FOR EXAM: LIGHTHEADED TECHNIQUE: Frontal and lateral views of the chest. COMPARISON: None FINDINGS: Heart size and mediastinal configuration are within normal limits. Focal eventration of the right hemidiaphragm is noted. There is no focal infiltrate or consolidation. There is no pneumothorax or effusion. There is no acute bony abnormality. Aortic calcifications are visible. RAD/Chest PA and Lateral IMPRESSION: No acute process is identified in the chest. Reading Location: [facility] CC: Dr. Ted Mendez DO; Dr. Suresh Olivares MD Cutter Down: Signed Normal [facility] Chloride assayOrdered By: Ja Mendez on 07-22-2024 Chloride [Moles/Vol] 103 mmol/L 98-108 [facility] Emergency Department Summary on 07-22-2024 Emergency Department Summary [facility] Medical Records Department [address] [place] [address] Emergency Department Summary 07/22/24 MR#: [id number] Acct: [id number] Name: ANGEL GONZALES Rep #: [id number] : 1955 68 From: Ted Mendez DO PCP: Dr. Suresh Olivares MD Status:REG ER Location: ED HPI History of Present Illness Chief Complaint: Dizziness Narrative Narrative: Chief complaint and HPI: Dizziness. 68-year-old male with past medical history of HTN and HLD presents for evaluation of dizziness. 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 States he was working outside a lot that day. States around 1600 he became dizzy. He describes his dizziness as lightheadedness. Not room spinning. States he intermittently feels woozy. He states he drank 3 cups of coffee yesterday. No water. States he also got fast food with a large soda. Patient states that he has continued to feel intermittently lightheaded which is why he presents for evaluation. He states the lightheadedness is intermittent and not constant. Lightheadedness mostly occurs with intermittent walking. Patient states that he has not ate or drink anything yet today. He denies any fever, chills, headache, vision changes, tinnitus, ear pain, URI symptoms, shortness of breath, chest pain, abdominal pain, vomiting, dysuria, diarrhea, constipation, neurological deficit, weakness, numbness/tingling. States that he gets intermittently nauseous when he gets lightheaded. Denies any syncope. Review of systems: See HPI Medications: As listed on the chart Allergies: As listed on the chart PFSH: Per chart Vital signs: As listed on the chart. Reviewed. Physical exam: Gen: A O x4, NAD Head: Normocephalic, atraumatic Eyes: No sclera icterus, conjunctiva clear, PERRL, EOMI, no nystagmus, no visual field deficit ENT: Mildly dry mucous membranes, No facial asymmetry Neck: Trachea midline, No JVD, no carotid bruit, full range of motion CV: RRR, no murmurs, no peripheral edema Resp: Lungs CTA BL, no w/r/c GI: Abd soft, non-distended, non-tender, no r/r/g Musc: Full ROM, no deformity, strength +5/5 in all extremities, no pronator drift, no ataxia with gait/finger-nose testing/[id number] testing Skin: Warm, dry, intact Neuro: Alert, oriented, grossly intact, sensation intact, no focal deficits Psych: Cooperative, appropriate mood and affect [facility] Medical History (Updated 07/22/24 @ 09:33 by Joaquin Ayala) HTN (hypertension) Home Medications ???Medication ???Instructions ???Recorded ???Last Taken ???Type atorvastatin 10 mg tablet 10 mg PO DAILY cholesterol 5 07/22/24 History lisinopril 20 mg tablet 20 mg PO DAILY 07/22/24 07/22/24 H istory Allergy/AdvReac Type Severity Reaction Status Date / Time No Known Allergies Allergy Verified 07/22/24 09:16 Social History Smoking Status: Never smoker EXAM Physical Exam Const Vital Signs: 07/22/24 09:16 07/22/24 09:38 07/22/24 10:29 Temperature 98.3 F Temperature Source Oral Pulse Rate 62 58 L Pulse Rate [Lying] 68 Pulse Rate [Sitting (for 1 minute prior to obtaining)] 62 Pulse Rate [Standing (for 1 minute prior to obtaining)] 65 Respiratory Rate 16 15 Blood Pressure 170/79 H 156/94 H Blood Pressure [Lying] 144/78 H Blood Pressure [Sitting (for 1 minute prior to obtaining)] 156/93 H Blood Pressure [Standing (for 1 minute prior to obtaining)] 154/93 H Blood Pressure Mean 109 114 Blood Pressure Mean [Lying] 100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 CABG Social History Tobacco Use Smoking status: Never Smokeless tobacco: Never Vaping Use Vaping status: Never Used Substance Use Topics Alcohol use: Yes Alcohol/week: 1.0 standard drink of alcohol Types: 1 Cans of Beer (12oz) per week Comment: monthly Drug use: No Reviewed current medications, allergies, past medical history, surgical history, family history and social history today. REVIEW OF SYSTEMS Discussed onychomycosis. All other reviewed and negative other than HPI. HEALTH MAINTENANCE: Reviewed health maintenance issues today and recommended the following in detail. Depression Screening Never done Anxiety Screening Never done BP Controlled (<130/80) Never done Had discussion with patient regarding risks and benefits of prostate screening. Allowed them to decide if they wished to proceed with screening including NADER and PSA. VITALS: BP 138/78 Pulse 75 Wt 96.1 kg (211 lb 13.8 oz) SpO2 96% BMI 33.18 kg/m? Last 4 Encounter Wt Readings: Date: Wt: 09/27/2023 97.9 kg (215 lb 13.3 oz) 09/21/2023 96.5 kg (212 lb 11.9 oz) 05/16/2023 97.1 kg (214 lb) 02/02/2023 98.9 kg (218 lb) PHYSICAL EXAMINATION: General appearance: Well appearing, alert, in no acute distress, well-hydrated, well nourished. Skin: Skin color, texture, turgor normal, no suspicious rashes or lesions Head: Normocephalic, no masses, lesions, tenderness or abnormalities Lungs: Lungs clear to auscultation. No wheezing, rhonchi, rales Heart: RRR without murmur, gallop, or rubs. No ectopy Abdomen: Normal abdominal exam, Abdomen soft, non-tender. Bowel sounds normal. No masses, organomegaly Extremities: No deformities, edema, skin discoloration, clubbing or cyanosis. Good capillary refill. Musculoskeletal: No joint swelling, deformity, or tenderness ASSESSMENT/PLAN: 1. 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 He recommended annual skin surveillance. 2. Screening for depression - ICD9: V79.0, ICD10: Z13.31 - DEPRESSION SCREENING 3. Encounter for screening examination for other mental health and behavioral disorders - ICD9: V79.8, ICD10: Z13.39 - ANXIETY SCREENING 4. Hyperglycemia - ICD9: 790.29, ICD10: R73.9 - stable. 5. Mixed hyperlipidemia - ICD9: 272.2, ICD10: E78.2 - Control undetermined, due for labs - Continue current medications 6. Primary hypertension - ICD9: 401.9, (more content not included)... Normal [facility] Comprehensive metabolic 2000 panelon 11-16-2023 Albumin [Mass/Vol] 4.0 g/dL Normal 3.9-4.9 [facility] Comment on above: Order Comment: Speci men Type: BLOOD SPECIMENOrdering Facility: [facility] Address: [address] [place] [id number] Performed By: #### 2 4331-1, 68855-9 ####[facility] LABCLIA [id number] [place] [address] [place] ALP [Catalytic activity/Vol] 67 U/L Normal 38-113 [facility] Comment on above: Order Comment: Speci men Type: BLOOD SPECIMENOrdering Facility: [facility] Address: [address] [place] [id number] Performed By: #### 2 4331-1, ####[facility] LABCLIA [id number] [place] [address] [place] ALT [Catalytic activity/Vol] 20 U/L Normal 10-54 [facility] Comment on above: Order Comment: Speci men Type: BLOOD SPECIMENOrdering Facility: [facility] Address: [address] [place] [address] Performed By: #### 2 4331-1, 68215-6 ####[facility] LABCLIA [id number] [place] [address] [place] Anion gap [Moles/Vol] 9 mmol/L Normal 8-15 [facility] Comment on above: Order Comment: Speci men Type: BLOOD SPECIMENOrdering Facility: [facility] Address: [address] [place] [address] Performed By: #### 2 4331-1, 88697-7 ####[facility] LABCLIA [id number] [place] [address] [place] AST [Catalytic activity/Vol] 17 U/L Normal 14-40 [facility] Comment on above: Order Comment: Speci men Type: BLOOD SPECIMENOrdering Facility: [facility] Address: [address] [place] [id number] Performed By: #### 2 4331-1, 85919-7 ####[facility] LABCLIA [id number] [place] [address] [place] Bilirubin [Mass/Vol] 0.5 mg/dL Normal 0.2-1.3 [facility] Comment on above: Order Comment: Speci men Type: BLOOD SPECIMENOrdering Facility: [facility] Address: [address] [place] [address] Performed By: #### 2 4331-1, 04793-3 ####[facility] LABCLIA [id number] [address] [address] [place] Calcium [Mass/Vol] 8.9 mg/dL Normal 8.5-10.2 [facility] Comment on above: Order Comment: Speci men Type: BLOOD SPECIMENOrdering Facility: [facility] Address: [address] [place] [address] Performed By: #### 2 4331-1, 88023-9 ####[facility] LABCLIA [id number] [place] [address] [place] Chloride [Moles/Vol] 107 mmol/L Normal 98-107 [facility] Comment on above: Order Comment: Speci men Type: BLOOD SPECIMENOrdering Facility: [facility] Address: [address] [place], [place] [address] Performed By: #### 2 4331-, ####[facility] LABCLIA [id number] [place] [address] [place] CO2 [Moles/Vol] 26 mmol/L Normal 22-30 [facility] Comment on above: Order Comment: Speci men Type: BLOOD SPECIMENOrdering Facility: [facility] Address: [address] [place], [place] [address] Performed By: #### 2 4331-, 87268-3 ####[facility] LABCLIA [id number] [address] [address] [place] Creatinine [Mass/Vol] 1.18 mg/dL Normal 0.73-1.22 [facility] Comment on above: Order Comment: Speci men Type: BLOOD SPECIMENOrdering Facility: [facility] Address: [address] [place], [place] [address] Performed By: #### 2 4331-1, 97407-4 ####[facility] LABCLIA [id number] [place] [address] [place] [facility] Creatinine and Glomerular filtration rate.predicted panel (S/P/Bld) 67 mL/min/1.73m??? Normal >=60 [facility] Comment on above: Order Comment: Demar campbell Type: BLOOD SPECIMENOrdering Facility: [facility] Address: [address] [place] [address] Result Comment: Leilani mated Glomerular Filtration Rate (eGFR) is calculated using the 2020 CKD-EPI creatinine equation. This equation utilizes serum creatinine, sex, and age as parameters. The creatinine assay has traceable calibration to isotope dilution-mass spectrometry. Refer to KDIGO guidelines for clinical interpretation. In patients with unstable renal function, e.g. those with acute kidney injury, the eGFR may not accurately reflect actual GFR. Performed By: #### 2 4331-1, 70376-9 ####[facility] [id number] [place] [address] [place] [facility] Glucose [Mass/Vol] 127 mg/dL High 74-99 [facility] Comment on above: Order Comment: Demar campbell Type: BLOOD SPECIMENOrdering Facility: [facility] Address: [address] [place] [address] Result Comment: The [place] Diabetes Association (ADA) provides guidance for cutoff values for fasting glucose and random glucose. The ADA defines fasting as no caloric intake for at least 8 hours. Fasting plasma glucose results between 100 to 125 mg/dL indicate increased risk for diabetes (prediabetes). Fasting plasma glucose results greater than or equal to 126 mg/dL meet the criteria for diagnosis of diabetes. In the absence of unequivocal hyperglycemia, results should be confirmed by repeat testing. In a patient with classic symptoms of hyperglycemia or hyperglycemic crisis, random plasma glucose results greater than or equal to 200 mg/dL meet the criteria for diagnosis of diabetes. Reference: Standards of Medical Care in Diabetes 2016, [place] Diabetes Association. Diabetes Care. 2016.39(Suppl 1). Performed By: #### 2 4331-1, 50050-4 ####[facility] [id number] [address] [id number] [address] [place] Potassium [Moles/Vol] 4.5 mmol/L Normal 3.7-5.1 [facility] Comment on above: Order Comment: Speci men Type: BLOOD SPECIMENOrdering Facility: [facility] Address: [address] [place] [address] Performed By: #### 2 4331-1, 55599-6 ####[facility] LABCLIA [id number] [place] [address] [place] Protein [Mass/Vol] 6.6 g/dL Normal 6.3-8.0 [facility] Comment on above: Order Comment: Speci men Type: BLOOD SPECIMENOrdering Facility: [facility] Address: [address] [place] [address] Performed By: #### 2 4331-1, 44319-2 ####[facility] LABCLIA [id number] [place] [address] [place] Sodium [Moles/Vol] 142 mmol/L Normal 136-144 [facility] Comment on above: Order Comment: Speci men Type: BLOOD SPECIMENOrdering Facility: [facility] Address: [address] [place] [address] Performed By: #### 2 4331-1, ####[facility] LABCLIA [id number] [place] [address] [place] Urea nitrogen [Mass/Vol] 17 mg/dL Normal 9-24 [facility] Comment on above: Order Comment: Speci men Type: BLOOD SPECIMENOrdering Facility: [facility] Address: [address] [place] [address] Performed By: #### 2 4331-1, 03676-1 ####[facility] LABCLIA [id number] [place] [id number] [place] HbA1c (Bld)on 11-16-2023 Average glucose Estimated from glycated hemoglobin (Bld) [Mass/Vol] 126 mg/dL Normal [facility] Comment on above: Order Comment: Saritai men Type: BLOOD SPECIMENOrdering Facility: [facility] Address: [address] [place] [address] Result Comment: eAG: (Estimated average glucose) is a calculated value from HgbA1c and is signs and displays sales representative of the average blood glucose level in the last 2-3 month period. Performed By: #### 5 5454-3 ####[facility] LABCLIA [id number] [place] [address] [place] HbA1c (Bld) [Mass fraction] 6.0 % High 4.3-5.6 [facility] Comment on above: Order Comment: Demar men Type: BLOOD SPECIMENOrdering Facility: [facility] Address: [address] [place] [address] Result Comment: Amer [place] Diabetes Association guidelines indicate that patients with HgbA1c in the range 5.7-6.4% are at increased risk for development of diabetes, and intervention by lifestyle modification may be beneficial. HgbA1c greater or equal to 6.5% is considered diagnostic of diabetes. Performed By: #### 5 5454-3 ####[facility] LABCLIA [id number] [place] [address] [place] Lipid 1996 panelon 4 Cholesterol [Mass/Vol] 164 mg/dL Normal <200 [facility] Comment on above: Order Comment: Demar men Type: BLOOD SPECIMENOrdering Facility: [facility] Address: [address] [place] [address] Result Comment: <200 mg/dL, Desirable 200-239 mg/dL, Borderline high >239 mg/dL, High Performed By: #### 2 4331-1, 91980-6 ####[facility] LABIA [id number] [address] [place] Cholesterol in HDL [Mass/Vol] 49 mg/dL Normal >39 [facility] Comment on above: Order Comment: Saritai men Type: BLOOD SPECIMENOrdering Facility: [facility] Address: [address] [place] [address] Result Comment: 40-5 9 mg/dL, Acceptable >59 mg/dL, High: Negative risk factor for coronary heart disease <40 mg/dL, Low: Positive risk factor for coronary heart disease Performed By: #### 2 4331-1, ####[facility] LABCLIA [id number] [address] [address] [place] Cholesterol in LDL [Mass/Vol] 97 mg/dL Normal <100 [facility] Comment on above: Order Comment: Speci men Type: BLOOD SPECIMENOrdering Facility: [facility] Address: [address] [place] [address] Result Comment: <100 mg/dL, Optimal 100-129 mg/dL, Near optimal/above optimal 130-159 mg/dL, Borderline high 160-189 mg/dL, High >189 mg/dL, Very high Secondary prevention optimal LDL Cholesterol levels are recommended to be < 70 mg/dL Performed By: #### 2 4331-1, ####[facility] LABCLIA [id number] [place] [address] [place] Cholesterol in LDL/Cholesterol in HDL [Mass ratio] 1.98 {ratio} Normal <2.54 [facility] Comment on above: Order Comment: Speci men Type: BLOOD SPECIMENOrdering Facility: [facility] Address: [address] [place] [address] Result Comment: Danika sanchez: 1. National Cholesterol Education Program ATP III Guideline At-A-Glance Quick Desk Reference: National Heart, Lung, and Blood [place]. National Institutes of Health. 2001: NIH Publication No. 01-3305. 2. An International Atherosclerosis Society position paper: global recommendations for the management of dyslipidemia: executive summary, Atherosclerosis. 2014: 232(2):410-413. Performed By: #### 2 4331-1, 73712-3 ####[facility] LABCLIA [id number] [place] [id number] [place] Cholesterol in VLDL [Mass/Vol] 18 mg/dL Normal <30 [facility] Comment on above: Order Comment: Speci men Type: BLOOD SPECIMENOrdering Facility: [facility] Address: [address] [place] [address] Performed By: #### 2 4331-1, ####[facility] LABCLIA [id number] [address] [address] [place] Cholesterol non HDL [Mass/Vol] 115 mg/dL Normal <130 [facility] Comment on above: Order Comment: Speci men Type: BLOOD SPECIMENOrdering Facility: [facility] Address: [address] [place] [address] Result Comment: <130 mg/dL, Optimal 130-159 mg/dL, Near optimal/above optimal 160-189 mg/dL, Borderline high 190-219 mg/dL, High >219 mg/dL, Very high Secondary prevention optimal non HDL Cholesterol levels are recommended to be <100 mg/dL Performed By: #### 2 433-, ####[facility] LABCLIA [id number] [place] [address] [place] Cholesterol.total/Choles terol in HDL [Mass ratio] 3.35 {ratio} Normal <5.10 [facility] Comment on above: Order Comment: Speci men Type: BLOOD SPECIMENOrdering Facility: [facility] Address: [address] [place] [address] Performed By: #### 2 4331-, ####[facility] LABCLIA [id number] [place] [id number] [place] FASTING TIME 12 hrs Normal [facility] Comment on above: Order Comment: Speci men Type: BLOOD SPECIMENOrdering Facility: [facility] Address: [address] [place] [address] Performed By: #### 2 4331-, ####[facility] LABCLIA [id number] [place] [address] [place] Triglyceride [Mass/Vol] 89 mg/dL Normal <150 [facility] Comment on above: Order Comment: Speci men Type: BLOOD SPECIMENOrdering Facility: [facility] Address: [address] [facility] [place] [address] Result Comment: <150 mg/dL, Normal 150-199 mg/dL, Borderline high 200-499 mg/dL, High >499 mg/dL, Very high Performed By: #### 2 4331-1, 36213-0 ####[facility] LABCLIA [id number] [facility]ITALPre[facility] [id number] [id number] [place] XR Chest PA and Lateralon IMPRESSION: Overall findings unchanged. Cutter Down: DEVIN Transcribe Date/Time: Jun 14 2020 10:20A Dictated by : TATYANA OSBORNE MD This examination was interpreted and the report reviewed and electronically signed by: TATYANA OSBORNE MD on Jun 14 2020 10:23AM [facility] DIVISION OF RADIOLOGY * * *Final Report* * * DATE OF EXAM: Jun 14 2020 9:48AM WOX [id number] - XR CHEST 2V FRONTAL/LAT / PROCEDURE REASON: Chest pain, unspecified type * * * * Physician Interpretation * * * * EXAMINATION: CHEST RADIOGRAPH (2 VIEW FRONTAL & LATERAL) CLINICAL HISTORY: Chest pain, unspecified type MQ: [id number] EXAM DATE/TIME: 06/14/2020 9:48 AM COMPARISON: Chest x-ray on 09/18/2013. RESULT: Lines, tubes, and devices: None. Lungs and pleura: No consolidation. Stable left mid lung nodule. No lung mass. No pleural effusion. No pneumothorax. Cardiomediastinal silhouette: Stable cardiomediastinal silhouette. A rounded opacity overlying the posterior aspect of the right hemidiaphragm, likely representing Bochdalek hernia. Bones and soft tissues: The spine shows degenerative changes. DIVISION OF RADIOLOGY Provider, [facility] - 06/14/2020 * * *Final Report* * * DATE OF EXAM: Jun 14 2020 9:48AM WOX [id number] - XR CHEST 2V FRONTAL/LAT / PROCEDURE REASON: Chest pain, unspecified type * * * * Physician Interpretation * * * * EXAMINATION: CHEST RADIOGRAPH (2 VIEW FRONTAL & LATERAL) CLINICAL HISTORY: Chest pain, unspecified type MQ: [id number] EXAM DATE/TIME: 06/14/2020 9:48 AM COMPARISON: Chest x-ray on 09/18/2013. RESULT: Lines, tubes, and devices: None. Lungs and pleura: No consolidation. Stable left mid lung nodule. No lung mass. No pleural effusion. No pneumothorax. Cardiomediastinal silhouette: Stable cardiomediastinal silhouette. A rounded opacity overlying the posterior aspect of the right hemidiaphragm, likely representing Bochdalek hernia. Bones and soft tissues: The spine shows degenerative changes. IMPRESSION IMPRESSION: Overall findings unchanged. Cutter Down: PSCB Transcribe Date/Time: Jun 14 2020 10:20A Dictated by : TATYANA OSBORNE MD This examination was interpreted and the report reviewed and electronically signed by: TATYANA OSBORNE MD on Jun 14 2020 10:23AM EST [facility] Radiology Study observation (narrative) [facility] Chest PA and LateralOrder ed By: [facility] Provider on 06-14-[address] [facility] [address] ABD/PEL W IVCONon 018 CT ABD/PEL W IVCON * * *Final Report* * *DATE OF EXAM: May 29 2017 9:59AM [facility] 0530 - CT ABD/PEL W IVCON / 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 Lymphoma identified in a right forehead scalp biopsy of 05/10/2017.2. Indication for CT: staging3. Indication for PET: Initial Treatment StrategyTECHNIQUE:Ivon gnostic CT scan: Contrast Enhanced diagnostic CT of the Chest, Abdomen, Pelvis.Diagnostic PET-CT scan: F18-FDG administered IV was followed about 60 minutes later by PET imaging from skull vertex to toes. Free breathing low dose CT was performed without contrast for attenuation correction and anatomic localization.Blood glucose before FDG injection: 0 mg/dLFDG radionuclide dose: 19.2 mCiCT Dose-Length Product (DLP): 662 mGy*cm.CT Dose Reduction Employed: Automated exposure control (AEC) was usedContrast Media 1: IV administration of 150 ml of Omnipaque 300Contrast Media 2: Oral administration of 900 ml of 50ML Omnipaque 240 with 850 ml of waterCOMPARISON:Diagn ostic CT: None.FDG PET-CT: None.RESULT:REFERENCE :Mediastinal blood pool: Max SUV 2.70Liver: Max SUV 4.78HEAD:There is a 1.4 cm lesion in the high right parietal scalp with Max SUV 4.24. There are other less well defined foci of lower grade FDG uptake in the scalp laterally.NECK:Physio logic uptake seen in the visualized brain, parapharyngeal soft tissues, base of tongue, vocal cords, and salivary glands.Cervical soft tissues and lymph nodes: There is a 0.9 cm right posterior triangle lymph node with max SUV 1.89.Oral cavity: Unremarkable. Physiologic FDG uptake but no activity to suggest neoplasm.Nasopharynx, oropharynx, hypopharynx: Unremarkable. Physiologic FDG uptake but no activity to suggest neoplasm.Pre-styloid parapharyngeal space: Unremarkable. Physiologic FDG uptake but no activity to suggest neoplasm.Bilingual Legal Assistant space: Unremarkable. Physiologic FDG uptake but no activity to suggest neoplasm.Tongue base and vallecula: Unremarkable. Physiologic FDG uptake but no activity to suggest neoplasm.Carotid sheath and contents: Unremarkable. Physiologic FDG uptake but no activity to suggest neoplasm.Larynx and Thyroid: Unremarkable. Physiologic FDG uptake but no activity to suggest neoplasm.Major salivary glands: Unremarkable. Physiologic FDG uptake but no activity to suggest neoplasm.Visualized brain and sinuses: Unremarkable. Physiologic FDG uptake but no activity to suggest neoplasm.CHEST:Physio logic uptake in the heart and mediastinum.Lungs and tracheobronchial tree: No consolidation, mass or nodules. Physiologic FDG uptake but no activity to suggest neoplasm.Pleura: No effusion or lesion. Physiologic FDG uptake but no activity to suggest neoplasm.Mediastinum and Lymph nodes: There is a 1 cm right paratracheal lymph node with max SUV 4.01 that is likely reactive.Heart and great vessels: Within normal limits. Physiologic FDG uptake is seen.Chest wall and axilla: Unremarkable. Physiologic FDG uptake but no activity to suggest neoplasm.ABDOMEN:Ther e is a small right fat-containing Bochdalek hernia, an incidental finding of no clinical significance.Physiolo gic uptake seen in the and GI tracts. Physiologic FDG uptake but no activity to suggest neoplasm.Liver: No mass. Moderate heterogeneous FDG uptake with no discrete hypermetabolic hepatic lesion.Biliary: No bile duct dilation.Spleen: No mass. No splenomegaly.Pancreas : No mass or duct dilation.Adrenals: No mass.Kidneys: Within normal limits, including no abnormal mass lesion or elevated FDG uptake..GI tract: No dilation or wall thickening.Lymph nodes: No abdominal or pelvic lymphadenopathy.Mesen kassidy/Peritoneum: No ascites or mass.Vasculature: The celiac axis and SMA are patent. The portal vein and branches, splenic vein, SMV, and hepatic veins are patent.Pelvis: No mass, ascites or fluid collection. . No ascites or focal mass lesion. Physiologic FDG uptake but no activity to suggest neoplasm. There is a small focus of external contamination on the skin of the right lateral pelvis.EXTREMITIES/SK ELETON:No suspicious FDG avid foci are detected. The imaged portions of the skeleton disclose age-related degenerative changes, with no detectable destructive lytic or sclerotic lesions to suggest metastases.========IM PRESSION:1. Small foci of mildly elevated radiotracer uptake in the scalp, the best defined of which is a 1.4 cm lesion in the high right parietal scalp. Given the history of lymphoma seen on biopsy of the right forehead scalp, this finding raises the question of an additional site of cutaneous lymphoma, although other considerations, including trauma, could give rise to this appearance.2. Otherwise, no abnormal mass lesion or elevated FDG uptake concerning for neoplasm in the body.*[place] CRITERIA SCORE: 1- score 1 : no uptake- score 2 : uptake <= mediastinum- score 3 : uptake > mediastinum, but <= liver- score 4 : uptake moderately higher than liver- score 5 : uptake markedly higher than liver and/or new lesions- score X : new areas of uptake unlikely to be related to [id number] riptionist: DEVIN Transcribe Date/Time: May 29 2017 12:42PDictated by : NORA STOUT MDThis examination was interpreted and the report reviewed and electronically signed by: NORA STOUT MD on May 29 2017 1:52PM [id number] IACN [facility] CT CHEST W IVCONon 8 CT CHEST W IVCON * * *Final Report* * *DATE OF EXAM: May 29 2017 9:59AM [facility] 0539 - CT CHEST W IVCON / 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 Lymphoma identified in a right forehead scalp biopsy of 05/10/2017.2. Indication for CT: staging3. Indication for PET: Initial Treatment StrategyTECHNIQUE:Ivon gnostic CT scan: Contrast Enhanced diagnostic CT of the Chest, Abdomen, Pelvis.Diagnostic PET-CT scan: F18-FDG administered IV was followed about 60 minutes later by PET imaging from skull vertex to toes. Free breathing low dose CT was performed without contrast for attenuation correction and anatomic localization.Blood glucose before FDG injection: 0 mg/dLFDG radionuclide dose: 19.2 mCiCT Dose-Length Product (DLP): 662 mGy*cm.CT Dose Reduction Employed: Automated exposure control (AEC) was usedContrast Media 1: IV administration of 150 ml of Omnipaque 300Contrast Media 2: Oral administration of 900 ml of 50ML Omnipaque 240 with 850 ml of waterCOMPARISON:Diagn ostic CT: None.FDG PET-CT: None.RESULT:REFERENCE :Mediastinal blood pool: Max SUV 2.70Liver: Max SUV 4.78HEAD:There is a 1.4 cm lesion in the high right parietal scalp with Max SUV 4.24. There are other less well defined foci of lower grade FDG uptake in the scalp laterally.NECK:Physio logic uptake seen in the visualized brain, parapharyngeal soft tissues, base of tongue, vocal cords, and salivary glands.Cervical soft tissues and lymph nodes: There is a 0.9 cm right posterior triangle lymph node with max SUV 1.89.Oral cavity: Unremarkable. Physiologic FDG uptake but no activity to suggest neoplasm.Nasopharynx, oropharynx, hypopharynx: Unremarkable. Physiologic FDG uptake but no activity to suggest neoplasm.Pre-styloid parapharyngeal space: Unremarkable. Physiologic FDG uptake but no activity to suggest neoplasm.Bilingual Legal Assistant space: Unremarkable. Physiologic FDG uptake but no activity to suggest neoplasm.Tongue base and vallecula: Unremarkable. Physiologic FDG uptake but no activity to suggest neoplasm.Carotid sheath and contents: Unremarkable. Physiologic FDG uptake but no activity to suggest neoplasm.Larynx and Thyroid: Unremarkable. Physiologic FDG uptake but no activity to suggest neoplasm.Major salivary glands: Unremarkable. Physiologic FDG uptake but no activity to suggest neoplasm.Visualized brain and sinuses: Unremarkable. Physiologic FDG uptake but no activity to suggest neoplasm.CHEST:Physio logic uptake in the heart and mediastinum.Lungs and tracheobronchial tree: No consolidation, mass or nodules. Physiologic FDG uptake but no activity to suggest neoplasm.Pleura: No effusion or lesion. Physiologic FDG uptake but no activity to suggest neoplasm.Mediastinum and Lymph nodes: There is a 1 cm right paratracheal lymph node with max SUV 4.01 that is likely reactive.Heart and great vessels: Within normal limits. Physiologic FDG uptake is seen.Chest wall and axilla: Unremarkable. Physiologic FDG uptake but no activity to suggest neoplasm.ABDOMEN:Ther e is a small right fat-containing Bochdalek hernia, an incidental finding of no clinical significance.Physiolo gic uptake seen in the and GI tracts. Physiologic FDG uptake but no activity to suggest neoplasm.Liver: No mass. Moderate heterogeneous FDG uptake with no discrete hypermetabolic hepatic lesion.Biliary: No bile duct dilation.Spleen: No mass. No splenomegaly.Pancreas : No mass or duct dilation.Adrenals: No mass.Kidneys: Within normal limits, including no abnormal mass lesion or elevated FDG uptake..GI tract: No dilation or wall thickening.Lymph nodes: No abdominal or pelvic lymphadenopathy.Mesen kassidy/Peritoneum: No ascites or mass.Vasculature: The celiac axis and SMA are patent. The portal vein and branches, splenic vein, SMV, and hepatic veins are patent.Pelvis: No mass, ascites or fluid collection. . No ascites or focal mass lesion. Physiologic FDG uptake but no activity to suggest neoplasm. There is a small focus of external contamination on the skin of the right lateral pelvis.EXTREMITIES/SK ELETON:No suspicious FDG avid foci are detected. The imaged portions of the skeleton disclose age-related degenerative changes, with no detectable destructive lytic or sclerotic lesions to suggest metastases.========IM PRESSION:1. Small foci of mildly elevated radiotracer uptake in the scalp, the best defined of which is a 1.4 cm lesion in the high right parietal scalp. Given the history of lymphoma seen on biopsy of the right forehead scalp, this finding raises the question of an additional site of cutaneous lymphoma, although other considerations, including trauma, could give rise to this appearance.2. Otherwise, no abnormal mass lesion or elevated FDG uptake concerning for neoplasm in the body.*[place] CRITERIA SCORE: 1- score 1 : no uptake- score 2 : uptake <= mediastinum- score 3 : uptake > mediastinum, but <= liver- score 4 : uptake moderately higher than liver- score 5 : uptake markedly higher than liver and/or new lesions- score X : new areas of uptake unlikely to be related to [id number] riptionist: DEVIN Transcribe Date/Time: May 29 2017 12:42PDictated by : NORA STOUT MDThijuanpablo examination was interpreted and the report reviewed and electronically signed by: NORA STOUT MD on May 29 2017 1:52PM [id number] [facility] PET/CT SKULL-THIGH INITon 05-29-2017 NM PET/CT SKULL-THIGH INIT * * *Final Report* * *DATE OF EXAM: May 29 2017 8:44AM [facility] 0060 - NM PET/CT SKULL-THIGH INIT / 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 Lymphoma identified in a right forehead scalp biopsy of 05/10/2017.2. Indication for CT: staging3. Indication for PET: Initial Treatment StrategyTECHNIQUE:Ivon gnostic CT scan: Contrast Enhanced diagnostic CT of the Chest, Abdomen, Pelvis.Diagnostic PET-CT scan: F18-FDG administered IV was followed about 60 minutes later by PET imaging from skull vertex to toes. Free breathing low dose CT was performed without contrast for attenuation correction and anatomic localization.Blood glucose before FDG injection: 0 mg/dLFDG radionuclide dose: 19.2 mCiCT Dose-Length Product (DLP): 662 mGy*cm.CT Dose Reduction Employed: Automated exposure control (AEC) was usedContrast Media 1: IV administration of 150 ml of Omnipaque 300Contrast Media 2: Oral administration of 900 ml of 50ML Omnipaque 240 with 850 ml of waterCOMPARISON:Diagn ostic CT: None.FDG PET-CT: None.RESULT:REFERENCE :Mediastinal blood pool: Max SUV 2.70Liver: Max SUV 4.78HEAD:There is a 1.4 cm lesion in the high right parietal scalp with Max SUV 4.24. There are other less well defined foci of lower grade FDG uptake in the scalp laterally.NECK:Physio logic uptake seen in the visualized brain, parapharyngeal soft tissues, base of tongue, vocal cords, and salivary glands.Cervical soft tissues and lymph nodes: There is a 0.9 cm right posterior triangle lymph node with max SUV 1.89.Oral cavity: Unremarkable. Physiologic FDG uptake but no activity to suggest neoplasm.Nasopharynx, oropharynx, hypopharynx: Unremarkable. Physiologic FDG uptake but no activity to suggest neoplasm.Pre-styloid parapharyngeal space: Unremarkable. Physiologic FDG uptake but no activity to suggest neoplasm.Bilingual Legal Assistant space: Unremarkable. Physiologic FDG uptake but no activity to suggest neoplasm.Tongue base and vallecula: Unremarkable. Physiologic FDG uptake but no activity to suggest neoplasm.Carotid sheath and contents: Unremarkable. Physiologic FDG uptake but no activity to suggest neoplasm.Larynx and Thyroid: Unremarkable. Physiologic FDG uptake but no activity to suggest neoplasm.Major salivary glands: Unremarkable. Physiologic FDG uptake but no activity to suggest neoplasm.Visualized brain and sinuses: Unremarkable. Physiologic FDG uptake but no activity to suggest neoplasm.CHEST:Physio logic uptake in the heart and mediastinum.Lungs and tracheobronchial tree: No consolidation, mass or nodules. Physiologic FDG uptake but no activity to suggest neoplasm.Pleura: No effusion or lesion. Physiologic FDG uptake but no activity to suggest neoplasm.Mediastinum and Lymph nodes: There is a 1 cm right paratracheal lymph node with max SUV 4.01 that is likely reactive.Heart and great vessels: Within normal limits. Physiologic FDG uptake is seen.Chest wall and axilla: Unremarkable. Physiologic FDG uptake but no activity to suggest neoplasm.ABDOMEN:Ther e is a small right fat-containing Bochdalek hernia, an incidental finding of no clinical significance.Physiolo gic uptake seen in the and GI tracts. Physiologic FDG uptake but no activity to suggest neoplasm.Liver: No mass. Moderate heterogeneous FDG uptake with no discrete hypermetabolic hepatic lesion.Biliary: No bile duct dilation.Spleen: No mass. No splenomegaly.Pancreas : No mass or duct dilation.Adrenals: No mass.Kidneys: Within normal limits, including no abnormal mass lesion or elevated FDG uptake..GI tract: No dilation or wall thickening.Lymph nodes: No abdominal or pelvic lymphadenopathy.Mesen kassidy/Peritoneum: No ascites or mass.Vasculature: The celiac axis and SMA are patent. The portal vein and branches, splenic vein, SMV, and hepatic veins are patent.Pelvis: No mass, ascites or fluid collection. . No ascites or focal mass lesion. Physiologic FDG uptake but no activity to suggest neoplasm. There is a small focus of external contamination on the skin of the right lateral pelvis.EXTREMITIES/SK ELETON:No suspicious FDG avid foci are detected. The imaged portions of the skeleton disclose age-related degenerative changes, with no detectable destructive lytic or sclerotic lesions to suggest metastases.========IM PRESSION:1. Small foci of mildly elevated radiotracer uptake in the scalp, the best defined of which is a 1.4 cm lesion in the high right parietal scalp. Given the history of lymphoma seen on biopsy of the right forehead scalp, this finding raises the question of an additional site of cutaneous lymphoma, although other considerations, including trauma, could give rise to this appearance.2. Otherwise, no abnormal mass lesion or elevated FDG uptake concerning for neoplasm in the body.*[place] CRITERIA SCORE: 1- score 1 : no uptake- score 2 : uptake <= mediastinum- score 3 : uptake > mediastinum, but <= liver- score 4 : uptake moderately higher than liver- score 5 : uptake markedly higher than liver and/or new lesions- score X : new areas of uptake unlikely to be related to [id number] riptionist: DEVIN Transcribe Date/Time: May 29 2017 12:42PDictated by : NORA STOUT MDThis examination was interpreted and the report reviewed and electronically signed by: NORA STOUT MD on May 29 2017 1:52PM [id number] [facility] Vital Signs Date Time Vital Sign Value Performing Clinician Facility 07-22-2024 11:55-0400 Body temperature 97.7 [degF] Dr. Suresh Olivares MD Work Phone: 1(695)[phone] [place] [address] 07-22-2024 11:55-0400 Diastolic blood pressure 83 mm[Hg] Dr. Suresh Olivares MD Work Phone: 0(500)157-843385 [place] [address] 07-22-2024 11:55-0400 Heart rate 87 /min Dr. Suresh Olivares MD Work Phone: 7(113)755-905885 [place] [address] 07-22-2024 11:55-0400 Respiratory rate 18 /min Dr. Suresh Olivares MD Work Phone: 3(130)977-361085 [place] [address] 07-22-2024 11:55-0400 SaO2% (BldA) [Mass fraction] 97 % Dr. Suresh Olivares MD Work Phone: 8(761)572-560585 [place] [address] 07-22-2024 11:55-0400 Systolic blood pressure 141 mm[Hg] Dr. Suresh Olivares MD Work Phone: 0(274)500-176585 [place] [address] 07-22-2024 09:16-0400 Body height 172.[address] Suresh Olivares MD Work Phone: 3(526)192-682485 [place] [address] 07-22-2024 09:16-0400 Body mass index (BMI) [Ratio] 32.4 kg/m2 Dr. Suresh Olivares MD Work Phone: 4(812)198-926385 [place] [address] 07-22-2024 09:16-0400 Body weight 96.[address] Suresh Olivares MD Work Phone: [facility] 07-09-2024 09:37-0400 Body mass index (BMI) [Ratio] 33.2 kg/m2 Suresh Olivares MD Work Phone: [facility] 07-09-2024 09:37-0400 Body weight 96.16 kg Suresh Olivares MD Work Phone: [facility] 07-09-2024 09:37-0400 Diastolic blood pressure 78 mm[Hg] Suresh Olivares MD Work Phone: [facility] 07-09-2024 09:37-0400 Heart rate 63 /min Suresh Olivares MD Work Phone: [facility] 07-09-2024 09:37-0400 SaO2% (BldA) [Mass fraction] 95 % Suresh Olivares MD Work Phone: [facility] 07-09-2024 09:37-0400 Systolic blood pressure 130 mm[Hg] Suresh Olivares MD Work Phone: [facility] 11-16-2023 09:21-0400 Body mass index (BMI) [Ratio] 33.18 kg/m2 Suresh Olivares MD Work Phone: [facility] 11-16-2023 09:21-0400 Body weight 96.1 kg Suresh Olivares MD Work Phone: [facility] 11-16-2023 09:21-0400 Diastolic blood pressure 78 mm[Hg] Suresh Olivares MD Work Phone: [facility] 11-16-2023 09:21-0400 Heart rate 75 /min Suresh Olivares MD Work Phone: [facility] 11-16-2023 09:21-0400 SaO2% (BldA) [Mass fraction] 96 % Suresh Oilvares MD Work Phone: [facility] 11-16-2023 09:21-0400 Systolic blood pressure 138 mm[Hg] Suresh Olivares MD Work Phone: [facility] 09-27-2023 14:33-0400 Body mass index (BMI) [Ratio] 33.8 kg/m2 Girma Michelle APRN.SUPERVISOR TAPING Work Phone: [facility] 09-27-2023 14:33-0400 Body temperature 98.01 [degF] Girma Michelle APRN.SUPERVISOR TAPING Work Phone: [facility] 09-27-2023 14:33-0400 Body weight 97.9 kg Girma Michelle APRN.SUPERVISOR TAPING Work Phone: [facility] 09-27-2023 14:33-0400 Diastolic blood pressure 74 mm[Hg] Girma Michelle CIGAR HEAD HOLER.SUPERVISOR TAPING Work Phone: [facility] 09-27-2023 14:33-0400 Heart rate 75 /min Girma Michelle CIGAR HEAD HOLER.SUPERVISOR TAPING Work Phone: [facility] 09-27-2023 14:33-0400 Respiratory rate 19 /min Girma Michelle CIGAR HEAD HOLER.SUPERVISOR TAPING Work Phone: [facility] 09-27-2023 14:33-0400 SaO2% (BldA) [Mass fraction] 95 % Girma Michelle CIGAR HEAD HOLER.SUPERVISOR TAPING Work Phone: [facility] 09-27-2023 14:33-0400 Systolic blood pressure 142 mm[Hg] Girma Michelle CIGAR HEAD HOLER.SUPERVISOR TAPING Work Phone: [facility] 09-21-2023 08:56-0400 Body mass index (BMI) [Ratio] 33.32 kg/m2 Larry Moomaw CIGAR HEAD HOLER.SUPERVISOR TAPING Work Phone: [facility] 09-21-2023 08:56-0400 Body temperature 97.59 [degF] Larry Moomaw CIGAR HEAD HOLER.SUPERVISOR TAPING Work Phone: [facility] 09-21-2023 08:56-0400 Body weight 96.5 kg Larry Moomaw CIGAR HEAD HOLER.SUPERVISOR TAPING Work Phone: [facility] 09-21-2023 08:56-0400 Diastolic blood pressure 80 mm[Hg] Larry Moomaw CIGAR HEAD HOLER.SUPERVISOR TAPING Work Phone: [facility] 09-21-2023 08:56-0400 Heart rate 64 /min Larry Moomaw CIGAR HEAD HOLER.SUPERVISOR TAPING Work Phone: [facility] 09-21-2023 08:56-0400 Respiratory rate 16 /min Larry Moomaw CIGAR HEAD HOLER.SUPERVISOR TAPING Work Phone: [facility] 09-21-2023 08:56-0400 SaO2% (BldA) [Mass fraction] 98 % Larry Moomaw CIGAR HEAD HOLER.SUPERVISOR TAPING Work Phone: [facility] 09-21-2023 08:56-0400 Systolic blood pressure 132 mm[Hg] Larry Agosto CIGAR HEAD HOLER.SUPERVISOR TAPING Work Phone: [facility] 05-16-2023 09:06-0400 Body weight 97.07 kg Suresh Olivares MD Work Phone: [facility] 05-16-2023 09:06-0400 Diastolic blood pressure 81 mm[Hg] Suresh Olivares MD Work Phone: [facility] 05-16-2023 09:06-0400 Heart rate 60 /min Suresh Olivares MD Work Phone: [facility] 05-16-2023 09:06-0400 SaO2% (BldA) [Mass fraction] 97 % Suresh Olivares MD Work Phone: [facility] 05-16-2023 09:06-0400 Systolic blood pressure 134 mm[Hg] Suresh Olivares MD Work Phone: [facility] 02-02-2023 08:35-0500 Body weight 98.88 kg uSresh Olivares MD Work Phone: [facility] 02-02-2023 08:35-0500 Diastolic blood pressure 68 mm[Hg] Suresh Olivares MD Work Phone: [facility] 02-02-2023 08:35-0500 Heart rate 68 /min Suresh Olivares MD Work Phone: [facility] 02-02-2023 08:35-0500 SaO2% (BldA) [Mass fraction] 93 % Suresh Olivares MD Work Phone: [facility] 02-02-2023 08:35-0500 Systolic blood pressure 143 mm[Hg] Suresh Olivares MD Work Phone: [facility] 08-02-2022 08:06-0400 Diastolic blood pressure 80 mm[Hg] Belinda Aceves CIGAR HEAD HOLER.SUPERVISOR TAPING Work Phone: [facility] 08-02-2022 08:06-0400 Heart rate 61 /min Belinda Aceves CIGAR HEAD HOLER.SUPERVISOR TAPING Work Phone: [facility] 08-02-2022 08:06-0400 Respiratory rate 18 /min Belinda Haagen CIGAR HEAD HOLER.SUPERVISOR TAPING Work Phone: [facility] 08-02-2022 08:06-0400 SaO2% (BldA) [Mass fraction] 95 % Belinda Haagen CIGAR HEAD HOLER.SUPERVISOR TAPING Work Phone: [facility] 08-02-2022 08:06-0400 Systolic blood pressure 112 mm[Hg] Belinda Haagen CIGAR HEAD HOLER.SUPERVISOR TAPING Work Phone: [facility] 05-24-2022 11:40-0400 Diastolic blood pressure 93 mm[Hg] Belinda Haagen CIGAR HEAD HOLER.SUPERVISOR TAPING Work Phone: [facility] 05-24-2022 11:40-0400 Heart rate 66 /min Belinda Haagen CIGAR HEAD HOLER.SUPERVISOR TAPING Work Phone: [facility] 05-24-2022 11:40-0400 Systolic blood pressure 156 mm[Hg] Belinda Haagen CIGAR HEAD HOLER.SUPERVISOR TAPING Work Phone: [facility] 05-24-2022 11:09-0400 Body weight 97.98 kg Belinda Haagen CIGAR HEAD HOLER.SUPERVISOR TAPING Work Phone: [facility] 05-24-2022 11:09-0400 Respiratory rate 18 /min Belinda Haagen CIGAR HEAD HOLER.SUPERVISOR TAPING Work Phone: [facility] 05-24-2022 11:09-0400 SaO2% (BldA) [Mass fraction] 96 % Belinda Haagen CIGAR HEAD HOLER.SUPERVISOR TAPING Work Phone: [facility] 11-24-2021 08:13-0400 Body height 170.2 cm Suresh Olivares MD Work Phone: [facility] 11-24-2021 08:13-0400 Body weight 96.62 kg Suresh Olivares MD Work Phone: [facility] 11-24-2021 08:13-0400 Diastolic blood pressure 82 mm[Hg] Suresh Olivares MD Work Phone: [facility] 11-24-2021 08:13-0400 Heart rate 67 /min Suresh Olivares MD Work Phone: [facility] 11-24-2021 08:13-0400 SaO2% (BldA) [Mass fraction] 97 % Suresh Olivares MD Work Phone: [facility] 11-24-2021 08:13-0400 Systolic blood pressure 146 mm[Hg] Suresh Olivares MD Work Phone: [facility] Encounters Encounter Date Encounter Type Care Provider Facility Start: 09-26-2024 End: 09-26-2024 Follow-up encounter Evelyn Jordan Work Phone: [employer] Comment on above: Results Start: 09-23-2024 End: 09-23-2024 Patient encounter procedure Evelyn Jordan Work Phone: [facility] Comment on above: Skin exam, screening for cancer (Primary Dx); 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 Suresh Olivares MD Work Phone: -Emergency Department Work Phone: Start: 07-22-2024 End: 07-22-2024 Patient encounter procedure Girma Michelle APRN.CNP Work Phone: [facility] Comment on above: Light headed (Primar y Dx) Start: 07-22-2024 End: 07-22-2024 ambulatory GIRMA MIGUEL ANGEL Facility:[facility] Start: 07-15-2024 End: 09-14-2024 Follow-up encounter Suresh Olivares MD Work Phone: [facility] [place] Start: 07-10-2024 End: 07-10-2024 ambulatory Suresh Olivares MD Work Phone: [facility] [place] Comment on above: [employer] Start: 07-10-2024 End: 09-09-2024 Follow-up encounter Suresh Olivares MD Work Phone: Pulmonology [facility] Start: 07-09-2024 End: 07-09-2024 ambulatory SURESH OLIVARES Facility:[facility] Start: 07-09-2024 End: 07-09-2024 Subsequent hospital visit by physician Xr [facility] [place] Work Phone: Radiology Comment on above: Chronic right should er pain [M25.511, G89.29] Start: 07-09-2024 End: 07-09-2024 Patient encounter procedure Suresh Olivares MD Work Phone: [facility] [place] Comment on above: Primary hypertension (Primary Dx); Mixed hyperlipidemia; Obstructive sleep apnea; Obesity, Class I, BMI 30-34.9; Hyperglycemia; Tremor; Skin cancer screening; History of primary cutaneous lymphoma; Chronic right shoulder pain Start: 07-09-2024 End: 07-09-2024 ambulatory SURESH OLIVARES Facility:[facility] Start: 06-17-2024 End: 06-17-2024 Refill Suresh Olivares MD Work Phone: [facility] [place] Comment on above: Refill Request Start: 05-28-2024 End: 05-29-2024 Refill Suresh Olivares MD Work Phone: [facility] [place] Comment on above: Refill Request Start: 11-16-2023 End: 11-16-2023 Patient encounter procedure Suresh Olivares MD Work Phone: [facility] [place] Comment on above: Cutaneous follicle c enter lymphoma of extranodal site (HCC) (Primary Dx); Screening for depression; Encounter for screening examination for other mental health and behavioral disorders; Hyperglycemia; Mixed hyperlipidemia; Primary hypertension; Primary cutaneous lymphoma (HCC); Obesity, Class I, BMI 30-34.9 Start: 11-16-2023 End: 11-16-2023 ambulatory SURESH Anay ELISE Facility:[facility] Start: 11-16-2023 End: 11-16-2023 ambulatory [facility] Facility:[facility] Start: 11-06-2023 End: 11-07-2023 Refill Suresh Olivares MD Work Phone: Family [facility] [place] Comment on above: Refill Request Start: 09-27-2023 End: 09-27-2023 Patient encounter procedure Girma Michelle APRN.SUPERVISOR TAPING Work Phone: [facility] Comment on above: Pain (Primary Dx) Start: 09-21-2023 End: 09-21-2023 Patient encounter procedure Larry Agosto CIGAR HEAD HOLER.SUPERVISOR TAPING Work Phone: [facility] Comment on above: Herpes zoster withou t complication (Primary Dx) Start: 07-04-2023 Telephone encounter Madeline Lopez MD Work Phone: Dermatology Comment on above: Patient Question Start: 07-04-2023 End: 07-04-2023 Patient encounter procedure Madeline Lopez MD Work Phone: Dermatology Comment on above: Cutaneous follicle c enter lymphoma of extranodal site (HCC) (Primary Dx); Primary cutaneous lymphoma (HCC); Seborrheic keratosis; Multiple benign nevi; Shukla angioma; Lentigines; Epidermoid cyst; Achrochordon Start: 05-16-2023 End: 05-16-2023 Patient encounter procedure Suresh Olivares MD Work Phone: [facility] [place] Comment on above: Primary hypertension (Primary Dx); Mixed hyperlipidemia; Hyperglycemia; Primary cutaneous lymphoma (HCC); Obstructive sleep apnea; Melanocytic nevi of face; 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) Start: 04-10-2023 Refill Suresh Olivares MD Work Phone: [facility] [place] Comment on above: Refill Request Start: 02-02-2023 End: 02-02-2023 Patient encounter procedure Suresh Olivares MD Work Phone: [facility] Comment on above: Hyperglycemia (Prima ry Dx); Primary hypertension; Mixed hyperlipidemia Start: 01-22-2023 End: 01-22-2023 ambulatory [facility] Work Phone: Start: 01-22-2023 End: 01-22-2023 Patient encounter procedure [facility], [facility] Work Phone: Start: 08-02-2022 End: 08-02-2022 Office outpatient visit 15 minutes Belinda Haagen CIGAR HEAD HOLER.SUPERVISOR TAPING Work Phone: [facility] Comment on above: Primary hypertension (Primary Dx); 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); Onychomycosis Start: 05-24-2022 End: 05-24-2022 Office outpatient visit 25 minutes Belinda Haagen CIGAR HEAD HOLER.SUPERVISOR TAPING Work Phone: [facility] Comment on above: Primary hypertension (Primary Dx); Hyperglycemia; Mixed hyperlipidemia; Abrasion of left hand, subsequent encounter; Encounter for immunization Start: 11-24-2021 End: 11-24-2021 Patient encounter procedure Suresh Oliavres MD Work Phone: [facility] Comment on above: Hyperglycemia (Prima ry Dx); 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); Primary cutaneous lymphoma (HCC); Muscle cramping; Onychomycosis Start: 10-20-2021 ambulatory Timi haas PA-C Work Phone: [facility] Comment on above: Results Start: 10-20-2021 E-mail encounter fro m caregiver Timi Garcia PA-C Work Phone: [facility] Start: 10-19-2021 End: 10-19-2021 Patient encounter procedure Timi Garcia PA-C Work Phone: [facility] Comment on above: Neoplasm of unspecif ied behavior of bone, soft tissue, and skin (Primary Dx) Start: 09-27-2021 Telephone encounter Timi herring PA-C Work Phone: [facility] Comment on above: Results Start: 06-14-2020 End: 06-14-2020 Subsequent hospital visit by physician Xr [facility] [place] Work Phone: Radiology Comment on above: Chest pain, unspecif ied type [R07.9] Start: 05-29-2017 Ambulatory [facility] Procedures Date Procedure Procedure Detail Performing Clinician Start: 07-22-2024 X-ray of chest, PA a nd lateral views Dr. Suresh Olivares MD Work Phone: Start: 07-22-2024 Urnls dip stick/tabl et reagent auto microscopy Dr. Suresh Olivares MD Work Phone: Start: 07-22-2024 CT of head without contrast Dr. Suresh Olivares MD Work Phone: Start: 07-22-[address] Suresh Olivares MD Work Phone: Start: 11-16-2023 Adult depression scr eening assessment Suresh Olivares MD Work Phone: Start: 11-16-2023 Lipid 1996 panel - S coretta or Plasma Xr [place] Work Phone: Start: 04-23-2023 Lipid 1996 panel - S coretta or Plasma Suresh Olivares MD Work Phone: Start: 02-12-2023 Lipid 1996 panel - S coretta or Plasma Suresh Olivares MD Work Phone: Start: 01-22-2023 X-ray of lumbosacral spine Start: 05-25-2022 Lipid 1996 panel - S coretta or Plasma Suresh Olivares MD Work Phone: Start: 11-24-2021 Adult depression scr eening assessment Suresh Olivares MD Work Phone: Start: 07-12-2020 Adult depression scr eening assessment Timi Garcia PA-C Work Phone: Start: 06-14-2020 Radiologic exam ches t 2 views Suresh Olivares MD Work Phone: Start: 11-25-2018 Colonoscopy Timi herring PA-C Work Phone: Plan of Treatment Date Care Activity Detail Author Start: 05-24-2032 Urine microalbumin profile [facility] Start: 11-25-2028 Colonoscopy COLONOSCOPY [facility] Start: 11-25-2028 COLORECTAL CANCER SCREENING COLORECTAL CANCER SCREENING [facility] Start: 11-25-2028 Screening for malign ant neoplasm of colon [facility] Start: 11-15-2028 Lipid panel Lipid Screening [facility] Start: 04-23-2028 Lipid panel Lipid Screening [facility] Start: 02-13-2028 Lipid panel [facility] Start: 07-10-2027 Diabetes Screening Diabetes Screenin g [facility] Start: 05-26-2027 Lipid 1996 panel - Serum or Plasma Lipid Screening [facility] Start: 05-26-2027 LIPID SCREEN LIPID SCREEN [facility] Start: 11-15-2026 Diabetes Screening Diabetes Screenin g [facility] Start: 05-27-2026 LIPID SCREEN LIPID SCREEN [facility] Start: 02-12-2026 Diabetes Screening Diabetes Screenin g [facility] Start: 07-14-2025 PROSTATE CANCER SCREENING DISCUSSION PROSTATE CANCER SCREENING DISCUSSION [facility] Start: 07-14-2025 Prostate specific antigen measurement Prostate Cancer Screening Discussion [facility] Start: 07-09-2025 Annual PCP Team 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 giselle Disease Visit Annual PCP Team Chronic Disease Visit [facility] Start: 07-09-2025 Covid-19 Vaccine (3 - Pfizer risk series) Covid-19 Vaccine (3 - Pfizer risk series) [facility] Comment on above: Postponed from 07/06 (Declined at this time) Start: 07-09-2025 RSV Vaccine (1 - Ris k 60-74 years 1-dose series) RSV Vaccine (1 - Risk 60-74 years 1-dose series) [facility] Comment on above: Postponed from 10/08 (Declined at this time) Start: 07-09-2025 Shingrix Vaccine (1 of 2) Shingrix Vaccine (1 of 2) [facility] Comment on above: Postponed from 10/08 (Declined at this time) Start: 05-25-2025 DIABETES SCREEN DIABETES SCREEN [facility] Start: 05-25-2025 Diabetes Screening Diabetes Screenin g [facility] Start: 01-27-2025 End: 01-27-2025 ambulatory 01/27/2025 7:30 AM EST Results Only [facility] [address] [place] [address] [facility] Start: 01-25-2025 End: 04-26-2025 Thyrotropin [Units/volume] in Serum or Plasma THYROID STIMULATING HORMONE Lab Routine Hypothyroidism, acquired Expected: 01/25/2025, Expires: 04/26/2025 [facility] Work Phone: Comment on above: Expected: 01/25/2025 , Expires: 04/26/2025 Start: 01-09-2025 End: 01-09-2025 Patient encounter procedure 01/09/2025 8:40 AM EST Office Visit [facility] [place] [address] [facility] [address] Joselyn Herman, CIGAR HEAD HOLER.SUPERVISOR TAPING [address] [place] [id number] wellness [facility] [place] Comment on above: wellness Start: 11-24-2024 DIABETES SCREEN DIABETES SCREEN [facility] Start: 11-15-2024 Annual PCP Team Organ Pipe Finisher giselle Disease Visit Annual PCP Team Chronic Disease Visit [facility] Start: 11-15-2024 Anxiety Screening Anxiety Screening [facility] Start: 11-15-2024 Depression Screening Depression Scre ening [facility] Start: 11-03-2024 Influenza vaccination [facility] Start: 09-23-2024 End: 09-23-2024 Patient encounter procedure 09/23/2024 10:10 AM EDT Office Visit [facility] [address] [place] [phone] Evelyn Jordan DO [address] [place] [address] full body check prev history of skin cancer and treated in [facility] Comment on above: full body check prev history of skin cancer and treated in [facility] Start: 09-01-2024 Influenza vaccination Influenza Vacc ine (#1) [facility] Comment on above: Postponed from 11/03 (Declined at this time) Start: 07-25-2024 End: 07-25-2024 ambulatory 07/25/2024 7:45 AM EDT OT/PT/Speech Visit [facility] [address] [place] [address] Shayna Saavedra, PT Chronic right shoulder pain [M25.511, G89.29] [facility] Comment on above: Chronic right should er pain [M25.511, G89.29] Start: 07-24-2024 End: 07-24-2024 ambulatory 07/24/2024 7:00 AM EDT Results Only [facility] [address] [place] [address] [facility] Start: 07-22-2024 [facility] Start: 07-22-2024 [facility] Start: 07-09-2024 End: 2024 Hemoglobin A1c in Blood [facility] Work Phone: Comment on above: Expected: 07/09/2024 , Expires: 2024 Start: 07-09-2024 End: 2024 Thyrotropin [Units/volume] in Serum or Plasma [facility] Comment on above: Expected: 07/09/2024 , Expires: 2024 Start: 07-09-2024 End: 07-09-2024 Patient encounter procedure 07/09/2024 9:40 AM EDT Office Visit [facility] [place] [address] [place] [address] Suresh Olivares MD [address] [facility] [place] [address] Follow up on blood pressure , right shoulder pain Family [facility] Comment on above: Follow up on blood p ressure , right shoulder pain Start: 05-27-2024 DIABETES SCREEN DIABETES SCREEN [facility] Start: 05-16-2024 End: 05-16-2024 Patient encounter procedure 05/16/2024 9:20 AM EDT Office Visit Family [facility] [place] [address] [place] [phone] Suresh Olivares MD [address] [place] [address] 6 month follow up [facility] [place] Comment on above: 6 month follow up Start: 05-15-2024 Annual PCP Team Organ Pipe Finisher giselle Disease Visit Annual PCP Team Chronic Disease Visit [facility] Start: 03-05-2024 Advance Directive Discussion Advance Directive Discussion [facility] Start: 02-03-2024 Annual PCP Team Organ Pipe Finisher giselle Disease Visit Annual PCP Team Chronic Disease Visit [facility] Start: 02-03-2024 Covid-19 Vaccine (3 - Pfizer risk series) Covid-19 Vaccine (3 - Pfizer risk series) [facility] Comment on above: Postponed from 07/06 (Declined at this time) Start: 02-03-2024 RSV Vaccine (1 - 1-d ose 60+ series) RSV Vaccine (1 - 1-dose 60+ series) [facility] Comment on above: Postponed from 10/08 (Declined at this time) Start: 02-03-2024 RSV Vaccine (1 - Ris k 60-74 years 1-dose series) RSV Vaccine (1 - Risk 60-74 years 1-dose series) [facility] Comment on above: Postponed from 10/08 (Declined at this time) Start: 02-03-2024 Shingrix Vaccine (1 of 2) Shingrix Vaccine (1 of 2) [facility] Comment on above: Postponed from 10/08 (Declined at this time) Start: 11-16-2023 End: 02-15-2024 CBC W Auto Differential panel - Blood CBC + DIFF Lab Routine Mixed hyperlipidemia Expected: 11/16/2023, Expires: 02/15/2024 [facility] Work Phone: Comment on above: Expected: 11/16/2023 , Expires: 02/15/2024 Start: 11-16-2023 End: 02-15-2024 Comprehensive metabolic 2000 panel - Serum or Plasma COMP METABOLIC PANEL Lab Routine Mixed hyperlipidemia Expected: 11/16/2023, Expires: 02/15/2024 [facility] Work Phone: Comment on above: Expected: 11/16/2023 , Expires: 02/15/2024 Start: 11-16-2023 End: 02-15-2024 Hemoglobin A1c in Blood HGB A1C Lab Routine Hyperglycemia Expected: 11/16/2023, Expires: 02/15/2024 [facility] Work Phone: Comment on above: Expected: 11/16/2023 , Expires: 02/15/2024 Start: 11-16-2023 End: 02-15-2024 Lipid 1996 panel - Serum or Plasma LIPID PANEL BASIC Lab Routine Mixed hyperlipidemia Expected: 11/16/2023, Expires: 02/15/2024 [facility] Work Phone: Comment on above: Expected: 11/16/2023 , Expires: 02/15/2024 Start: 11-16-2023 End: 11-16-2023 Patient encounter procedure 11/16/2023 10:00 AM EDT Office Visit [facility] [address] [place], [place] [id number] Suresh Olivares MD [address] [place], [place] [id number] 6 month follow up [facility] [place] Comment on above: 6 month follow up Start: 11-04-[address] [facility] Start: 09-21-2023 End: 12-21-2023 Herpes simplex virus+Varicella zoster virus DNA [Presence] in Unspecified specimen by MAURICIO with probe detection HSV1,2/VZV NAAT LESION Lab Routine Herpes zoster without complication Expected: 09/21/2023, Expires: 12/21/2023 [facility] Work Phone: Comment on above: Expected: 09/21/2023 , Expires: 12/21/2023 Start: 09-02-2023 Influenza vaccination Influenza Vacc ine (#1) [facility] Comment on above: Postponed from 11/03 (Declined at this time) Start: 08-03-2023 ANNUAL PCP TEAM FURNITURE BUILDER GISELLE DISEASE VISIT ANNUAL PCP TEAM CHRONIC DISEASE VISIT [facility] Start: 05-25-2023 COVID-19 VACCINE (2 - Pfizer risk series) COVID-19 VACCINE (2 - Pfizer risk series) [facility] Comment on above: Postponed from 03/09 (Declined at this time) Start: 03-05-2023 Advance Directive Discussion Advance Directive Discussion [facility] Start: 03-05-2023 Behavioral Health Screening Behavioral Health Screening [facility] Start: 03-05-2023 Depression Assessment Depression Ass essment [facility] Start: 02-02-2023 End: 05-04-2023 Hemoglobin A1c in Blood HGB A1C Lab Routine Hyperglycemia Expected: 02/02/2023, Expires: 05/04/2023 [facility] Work Phone: Comment on above: Expected: 02/02/2023 , Expires: 05/04/2023 Start: 02-02-2023 End: 05-04-2023 Lipid 1996 panel - Serum or Plasma LIPID PANEL BASIC Lab Routine Mixed hyperlipidemia Expected: 02/02/2023, Expires: 05/04/2023 [facility] Work Phone: Comment on above: Expected: 02/02/2023 , Expires: 05/04/2023 Start: 11-24-2022 Adult depression screening assessment DEPRESSION SCREENING [facility] Start: 11-03-2022 Influenza vaccination INFLUENZA (Sea son Ended) [facility] Start: 09-01-2022 Influenza vaccination INFLUENZA (#1) [facility] Comment on above: Postponed from 11/03 (Declined at this time) Start: 07-06-2022 COVID-19 VACCINE (3 - Pfizer risk series) COVID-19 VACCINE (3 - Pfizer risk series) [facility] Start: 05-24-2022 End: 07-24-2022 CBC W Auto Differential panel - Blood CBC + DIFF Lab Routine Primary hypertension Expected: 05/24/2022, Expires: 07/24/2022 [facility] Work Phone: Comment on above: Expected: 05/24/2022 , Expires: 07/24/2022 Start: 05-24-2022 End: 07-24-2022 Comprehensive metabolic 2000 panel - Serum or Plasma COMP METABOLIC PANEL Lab Routine Primary hypertension Expected: 05/24/2022, Expires: 07/24/2022 [facility] Work Phone: Comment on above: Expected: 05/24/2022 , Expires: 07/24/2022 Start: 05-24-2022 End: 07-24-2022 Hemoglobin A1c in Blood HGB A1C Lab Routine Hyperglycemia Expected: 05/24/2022, Expires: 07/24/2022 [facility] Work Phone: Comment on above: Expected: 05/24/2022 , Expires: 07/24/2022 Start: 05-24-2022 End: 07-24-2022 Lipid 1996 panel - Serum or Plasma LIPID PANEL BASIC Lab Routine Mixed hyperlipidemia Expected: 05/24/2022, Expires: 07/24/2022 [facility] Work Phone: Comment on above: Expected: 05/24/2022 , Expires: 07/24/2022 Start: 03-05-2022 ADVANCE DIRECTIVE DISCUSSION ADVANCE DIRECTIVE DISCUSSION [facility] Start: 03-05-2022 DEPRESSION ASSESSMENT DEPRESSION ASS ESSMENT [facility] Start: 11-24-2021 End: 01-24-2022 Basic metabolic 2000 panel - Serum or Plasma BASIC METABOLIC PNL Lab Routine Muscle cramping Expected: 11/24/2021, Expires: 01/24/2022 [facility] Work Phone: Comment on above: Expected: 11/24/2021 , Expires: 01/24/2022 Start: 11-24-2021 End: 01-24-2022 Hemoglobin A1c in Blood HGB A1C Lab Routine Hyperglycemia Expected: 11/24/2021, Expires: 01/24/2022 [facility] Work Phone: Comment on above: Expected: 11/24/2021 , Expires: 01/24/2022 Start: 11-24-2021 End: 01-24-2022 Magnesium [Mass/volume] in Serum or Plasma MAGNESIUM BLD Lab Routine Muscle cramping Expected: 11/24/2021, Expires: 01/24/2022 [facility] Work Phone: Comment on above: Expected: 11/24/2021 , Expires: 01/24/2022 Start: 11-03-2021 Influenza vaccination INFLUENZA (#1) [facility] Start: 07-12-2021 Adult depression screening assessment DEPRESSION SCREENING [facility] Start: 06-27-2021 Urine microalbumin profile DTAP,TDAP,TD (2 - Td or Tdap) [facility] Start: 03-09-2021 COVID-19 VACCINE (2 - Pfizer risk series) COVID-19 VACCINE (2 - Pfizer risk series) [facility] Start: 03-05-2021 ADVANCE DIRECTIVE DISCUSSION ADVANCE DIRECTIVE DISCUSSION [facility] Start: 10-04-2019 Medicare Annual Wellness Visit Medicare Annual Wellness Visit [facility] Start: 2014 RSV Vaccine (1 - Ris k 60-74 years 1-dose series) RSV Vaccine (1 - Risk 60-74 years 1-dose series) [facility] Start: 04-26-2013 FECAL OCCULT BLOOD FECAL OCCULT BLOO D [facility] Start: 04-26-2013 Screening for malign ant neoplasm of colon Fecal Occult Blood [facility] Start: 10-09-1999 COLOGUARD (FIT-DNA) COLOGUARD (FIT-D NA) [facility] Start: 10-09-[address] COLONOGRAPHY [facility] Start: 10-09-1999 Screening for malign ant neoplasm of colon [facility] Start: 10-09-[address] [facility] Start: 1973 SHINGRIX VACCINE (1 of 2) SHINGRIX VACCINE (1 of 2) [facility] Start: 1972 Anxiety Screening Anxiety Screening [facility] Start: 1972 BP CONTROLLED (<130/80) BP CONTROLLE D (<130/80) [facility] Start: 1972 Depression Screening Depression Scre ening [facility] Patient Education ED Dizziness, Uncertain Cause [facility] Work Phone: Patient referral [facility] Work Phone: SURGICAL PATHOLOGY SURGICAL PATH OLOGY Lab Routine Neoplasm of unspecified behavior of bone, soft tissue, and skin Ordered: 10/19/2021 [facility] Work Phone: Comment on above: Ordered: 10/19/2021 Tissue Pathology bio psy report SURGICAL PATHOLOGY Lab Routine Neoplasm of skin Ordered: 09/23/2024 [facility] Work Phone: Comment on above: Ordered: 09/23/2024 End: 08-08-2025 XR Shoulder - right 3 Views XR SHOULDER GENERAL 3V OR MORE AP/TRUE AP/OTHER RIGHT Radiology Routine Chronic right shoulder pain 1 Occurrences starting 07/09/2024 until 08/08/2025 [facility] Comment on above: 1 Occurrences starti ng 07/09/2024 until 08/08/2025 XR Shoulder - right 3 Views XR SHOULDER GENERAL 3V OR MORE AP/TRUE AP/OTHER RIGHT Radiology Routine Chronic right shoulder pain 07/09/2024 10:56 AM EDT [facility] Immunizations Immunization Date Immunization Notes Care Provider Tk brand 05-24-2022 tetanus toxoid, redu xochilt diphtheria toxoid, and acellular pertussis vaccine, adsorbed Belinda Aceves [employer] Work Phone: [facility] 11-19-2020 pneumococcal polysaccharide vaccine, 23 valent Timi Garcia PA-C Work Phone: [facility] 02-10-2019 pneumococcal conjuga te vaccine, 13 valent Timi Garcia PA-C Work Phone: [facility] 04-28-2017 influenza virus vacc ine, unspecified formulation Suresh Olivares MD Work Phone: [facility] 06-28-2011 tetanus toxoid, redu xochilt diphtheria toxoid, and acellular pertussis vaccine, adsorbed Timi Garcia PA-C Work Phone: [facility] Payers Date Payer Category Payer Self-pay [id number] 2019 Medicare MEDICARE MEDICAR E A AND B [id number] 2019-Present [phone] [place] [address] Medicare [id number] 2019 Medicare [id number] 2019 Private Health Insurance MMO MED ICARE SUPPLEMENT [id number] 2019 Unknown MMO MMO MEDICARE SUPPLEMENT [id number] 2019-Present [phone] [place] [id number] Indemnity [id number] 2019 Unknown MMO MMO MEDICARE SUPPLEMENT [id number] 2019-Present [phone] [place] [id number] Indemnity [id number] 2019 Medicare [id number] 2019 Unknown [id number] 2009 Unknown AULTCARE [id number] Unknown [id number] Unknown [id number] Social History Date Type Detail Facility Start: 04-28-2017 End: 11-24-2021 Tobacco smoking status NHIS Never smoked tobacco [facility] Work Phone: Start: 05-27-2021 End: 07-09-2024 Alcohol intake Current drinker of alcohol (finding) [facility] Start: 05-27-2021 End: 02-02-2023 Alcohol intake [facility] Start: 07-12-2020 End: 05-22-2022 History SDOH Alcohol Frequency 3 [facility] Start: 07-12-2020 End: 05-22-2022 History SDOH Alcohol Std Drinks 1 [facility] Start: 05-23-2017 History SDOH Alcohol Comment monthly [facility] Start: 07-12-2020 End: 05-22-2022 History SDOH Social Connections Phone 5 [facility] Start: 07-12-2020 History SDOH Social Connections Get Together 98 [facility] Start: 07-12-2020 History SDOH Financial 4 [facility] Start: 07-12-2020 End: 05-22-2022 History SDOH Transport Med 2 [facility] Start: 07-12-2020 Education 15 [facility] Start: 1955 Sex Assigned At Not on file [facility] Start: 05-15-2020 End: 11-24-2021 Exposure to SARS-CoV-2 (event) Not sure [facility] Start: 04-28-2017 End: 11-24-2021 Tobacco use and exposure Smokeless tobacco non-user [facility] Start: 06-14-2020 Tobacco smoking stat us NHIS Unknown if ever smoked [facility] Start: 1955 Sex Assigned At Male [facility] Start: 05-21-2022 End: 02-02-2023 Social connection and isolation panel [facility] Do you belong to any clubs or organizations such as uatsdin groups, unions, fraternal or athletic groups, or school groups? Yes [facility] Are you now , , , , never or living with a partner? [facility] How often to you hav e a drink containing alcohol? 2-4 times a month [facility] How many standard dr inks containing alcohol do you have on a typical day? 1 or 2 [facility] How often do you hav e 6 or more drinks on 1 occasion? Never [facility] How hard is it for y ou to pay for the very basics like food, housing, medical care, and heating Not hard at all [facility] (I/We) worried mariano er (my/our) food would run out before (I/we) got money to buy more. Never true [facility] In the past 12 month s, was there a time when you were not able to pay the mortgage or rent on time? No [facility] Do you feel stress - tense, restless, nervous, or anxious, or unable to sleep at night because your mind is troubled all the time - these days [OSQ] Only a little [facility] Functional Status Date Assessment Result Facility 01-31-2016 Are you deaf, or do you have serious difficulty hearing No 01/31/2016 10:18 AM Keely Gonzales PA-C No [facility] Work Phone: 01-31-2016 Are you blind, or do you have serious difficulty seeing, even when wearing glasses No 01/31/2016 10:18 AM Keely Gonzales PA-C No [facility] 01-31-2016 Do you have serious difficulty walking or climbing stairs No 01/31/2016 10:18 AM Keely Gonzales PA-C No [facility] 01-31-2016 Do you have difficul ty dressing or bathing No 01/31/2016 10:18 AM Keely Gonzales PA-C No [facility] 01-31-2016 Because of a physica l, mental, or emotional condition, do you have difficulty doing errands alone such as visiting a physician's office or shopping No 01/31/2016 10:18 AM Keely Gonzales PA-C No [facility] Mental Status Date Assessment Result Facility 07-22-2024 Cognitive function Level Of Cons ciousness Awake;Alert;Appropriate;Fol lows Commands [facility] Work Phone: 01-31-2016 Because of a physica l, mental, or emotional condition, do you have serious difficulty concentrating, remembering, or making decisions No 01/31/2016 10:18 AM Keely Gonzales PA-C No [facility] Clinical Notes 02-07-2016 to 09-26-2024 Telephone Encounter - Shanice Miller MA - 09/26/2024 11:26 AM EDTTelephone Encounter - Shanice Miller MA - 09/26/2024 11:26 AM EDTPatient InstructionsPatient Instructions Note Date & Type Note Facility 09-26-2024 Telephone encounter Note ----- Message from Evelyn Jordan DO sent at 09/26/2024 10:41 AM EDT ----- A. Skin, left top of scalp, shave biopsy: - Melanocytic nevus, predominantly intradermal type- Benign [facility] 09-26-2024 Miscellaneous Notes ----- Message from Evelyn Jordan DO sent at 09/26/2024 10:41 AM EDT ----- A. Skin, left top of scalp, shave biopsy: - Melanocytic nevus, predominantly intradermal type- Benign documented in this encounter [facility] 09-23-2024 Jenna Piña MA - 09/23/2024 10:45 AM EDT Images from the original note were not included. Department of Dermatology [address] [place] [id number] CARE FOR YOUR SHAVE BIOPSY SITE Please follow these instructions for daily wound care: 1. Wash the area every day with gentle soap and water. 2. Apply a thin layer of Vaseline or Aquaphor to the wound site to keep the area slightly greasy at all time (this helps to prevent scabbing). Please do not use an old tub of ointment as this can introduce germs into your wound and cause infection. 3. Cover with a bandage and continue this daily process until the wound is healed. Do not leave a soiled or wet bandage on the wound. -Keep the area clean and dry with the bandage in place the day of surgery. -If you experience any bleeding, please apply pressure to the area for approximately 10 minutes. -You may shower, but do not soak in a bathtub, hot tub, pool, osuna, etc until after the wound has healed. -DO NOT USE NEOSPORIN OR BACITRACIN as there is a fairly high incidence of allergic response to these products. -You may experience some mild discomfort, redness, swelling, and/or a clear discharge from the wound after your procedure. Severe pain, worsening swelling, and foul-smelling discharge from the site are NOT to be expected. If you have concerns about how your wounds are healing, please send your provider a [employer] message or call [phone] and ask for a dermatology nurse. documented in this encounter [facility] 09-23-2024 Note HNO ID: [id number] Author: EVELYN JORDAN DO Service: ? Author Type: Physician Type: Progress Notes Filed: 09/23/2024 13:05 Note Text: Established Patient Visit Last Visit Date: 07/04/2023 CC: FBSE HPI: 68 year old male. 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 Skin as above. Physical Exam: Gen: AANDOx3, well appearing Skin exam performed including scalp, face, neck, chest, abdomen, back, arms, hands, legs, feet. Exam with noted findings of: -Scattered normal appearing brown macules and papules with reassuring features on dermoscopy -Trunk: scattered small red papules -Face, neck, trunk, UE with scattered ramirez-brown macules in sun-exposed distribution -Trunk, UE, LE with scattered warty brown stuck-on papules -Scalp clear today -No cervical, submandibular, axillary, or inguinal lymphadenopathy appreciated on exam today. -6 mm erythematous papule on L top of scalp Assessment/Plan: ASSESSMENT/PLAN: 1. Skin exam, screening for cancer - ICD9: V76.43, ICD10: Z12.83 (primary diagnosis) -The ABCD's of melanoma were discussed. The patient is to perform monthly self exams and follow-up in dermatology for skin exams every year. If any new lesions then the patient shall return sooner. Recommended SPF of 30 or greater. 2. 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 Primary cutaneous lymphoma (HCC) - ICD9: 202.10, ICD10: C85.99 -No evidence of recurrence -Continue Follow up with Heme/Onco 4. Neoplasm of skin - ICD9: 239.2, ICD10: D49.2 -Shave Biopsy: The risks, benefits, indications, alternatives, and complications were discussed, and informed consent was obtained. Specifically, the expectation of a permanent scar and risk of possible infection were explained and understood. If the procedure were to be declined, the lesion could not be evaluated microscopically for diagnosis or abnormality, including cancer. Verbal consent was obtained. -See procedure notes. -SURGICAL PATHOLOGY 5. Multiple benign nevi - ICD9: 216.9, ICD10: D22.9 -Explanation of these lesions were dicussed. Benign reassurance was given. -If lesion should change, grow, darken, bleed, etc then discussed with patient to call and return to the office. 6. Lentigines - ICD9: 709.09, ICD10: L81.4 -Explanation of these lesions were dicussed. Benign reassurance was given. 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 Benign reassurance was given. 8. Seborrheic keratosis - ICD9: 702.19, ICD10: L82.1 -Explanation of these lesions were dicussed. Benign reassurance was given. Procedures: Tangential biopsy via shave technique: A.) Left top of Scalp: R/O BCC vs SCC vs Lymphoma (Hx of B cell lymphoma) - Tangential biopsy by shave. The risks, benefits, indications, alternatives, and complications were discussed, and informed consent was obtained. Specifically, the expectation of a permanent scar and risk of possible infection were explained and understood. If the procedure were to be declined, the lesion could not be evaluated microscopically for diagnosis or abnormality, including cancer. In accordance with the [facility] policy, pre-procedure time out was performed to verify the correct patient, procedure, site, positioning, and implant(s) or special equipment. Site(s) were cleaned with alcohol and anesthetized with 1% lidocaine with epinephrine. Tangential biopsy via shave technique was performed. Hemostasis was obtained with aluminum chloride and/or electrocautery. Petrolatum and bandage were applied. The patient tolerated the procedure well without complications and with minimal blood loss. Written wound care instructions were reviewed and given. Specimen(s) sent to pathology. UNIVERSAL PROTOCOL / SAFETY CHECKLIST Procedure to be Performed: shave biopsy Sign In: A Moment of CARE was completed. Appropriate PPE (Personal Protective Equipment) worn by all providers involved with the procedure. Special equipment utilized . Patient/Surrogate Stated/Verified: Time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 Resp: Lungs CTA BL, no w/r/c GI: Abd soft, non-distended, non-tender, no r/r/g Musc: Full ROM, no deformity, strength +5/5 in all extremities, no pronator drift, no ataxia with gait/finger-nose testing/[id number] testing Skin: Warm, dry, intact Neuro: Alert, oriented, grossly intact, sensation intact, no focal deficits Psych: Cooperative, appropriate mood and affect [facility] Medical History (Updated 07/22/24 @ 09:33 by Joaquin Ayala) HTN (hypertension) Home Medications ?Medication ?Instructions ?Recorded ?Last Taken ?Type atorvastatin 10 mg tablet 10 mg PO DAILY cholesterol 0 07/22/24 07/22/24 History lisinopril 20 mg tablet 20 mg PO DAILY 07/22/24/ History Allergy/AdvReac Type Severity Reaction Status Date / Time No Known Allergies Allergy Verified 07/22/24 09:16 Social History Smoking Status: Never smoker EXAM Physical Exam Const Vital Signs: 07/22/24 09:16 07/22/24 09:38 07/22/24 10:29 Temperature 98.3 F Temperature Source Oral Pulse Rate 62 58 L Pulse Rate [Lying] 68 Pulse Rate [Sitting (for 1 minute prior to obtaining)] 62 Pulse Rate [Standing (for 1 minute prior to obtaining)] 65 Respiratory Rate 16 15 Blood Pressure 170/79 H 156/94 H Blood Pressure [Lying] 144/78 H Blood Pressure [Sitting (for 1 minute prior to obtaining)] 156/93 H Blood Pressure [Standing (for 1 minute prior to obtaining)] 154/93 H Blood Pressure Mean 109 114 Blood Pressure Mean [Lying] 100 Blood Pressure Mean [Sitting (for 1 minute prior to obtaining)] 114 Blood Pressure Mean [Standing (for 1 minute prior to obtaining)] 113 Pulse Ox 98 97 Oxygen Delivery Method Room Air 07/22/24 11:00 Temperature Temperature Source Pulse Rate 56 L Pulse Rate [Lying] Pulse Rate [Sitting (for 1 minute prior to obtaining)] Pulse Rate [Standing (for 1 minute prior to obtaining)] Respiratory Rate 18 Blood Pressure 146/83 H Blood Pressure [Lying] Blood Pressure [Sitting (for 1 minute prior to obtaining)] Blood Pressure [Standing (for 1 minute prior to obtaining)] Blood Pressure Mean 104 Blood Pressure Mean [Lying] Blood Pressure Mean [Sitting (for 1 minute prior to obtaining)] Blood Pressure Mean [Standing (for 1 minute prior to obtaining)] Pulse Ox 98 Oxygen Delivery Method Room Air MDM MDM MDM Narrative Medical decision making narrative: 68-year-old male with past medical history of HTN and HLD presents for evaluation of dizziness. Describes the dizziness as lightheadedness and not vertigo. Lightheadedness is intermittent in and not constant. Endorses little p.o. intake and hydration. Denies any associated symptoms other than nausea with the lightheadedness. Differential diagnosis includes but is not limited todehydration, electrolyte abnormality, orthostatic hypotension, anemia. Low suspicion for UTI, ACS, arrhythmia, intracranial abnormality. Not consistent with CVA. Patient has no ataxia or neurological deficits. Orthostatic vital signs will be obtained. NS bolus, Zofran, meclizine ordered for symptoms. Laboratory workup ordered including CT head and urine. Orthostatic vital signs negative for blood pressure and heart rate however with standing patient did endorse some lightheadedness which she did not have when lying down or sitting. EKG and chest x-ray reviewed see below. CBC without leukocytosis or anemia. BMP unremarkable without significant electrolyte abnormality or CHARLINE. Troponin unremarkable. UA negative for UTI and ketones. CT of the brain shows no acute intracranial abnormality. On reevaluation, patient states his dizziness has almost completely resolved. He ambulated in our emergency department without difficulty. States his dizziness has resolved. I suspect patient's dizziness was likely secondary to mild dehydration given that he has not been drinking much water and drinking a lot of coffee. He is also skipping meals. I told himthat he needs to make sure that he is drinking water and eating all his meals. Return precautions explained. Follow-up with PCP. He confirmed understanding of the plan. EKG: Interpreted by me/EM physician: EKG shows normal sinus rhythm without any acute ischemic changes. Heart rate 66. Diagnostic: Interpreted by me/EM physician: Chest x-ray without pneumonia, effusion, cardiomegaly, pneumothorax. Radiology in agreement. Impression: 1. Dizziness, suspect mild dehydration Lab Data Labs: Laboratory Results - last 24 hr 07/22/24 07/22/24 09:26 09:52 WBC 6.0 RBC 5.04 Hgb 15.8 Hct 46.8 MCV 92.9 MCH 31.3 MCHC 33.8 RDW Std Deviation 42.9 RDW Coeff of Cosme 12.5 Plt Count 222 MPV 10.1 Immature Gran % (Auto) 0.300 Neut % (Auto) 50.6 Lymph % (Auto) 34.4 Spencer % (Auto) 11.2 H Eos % (Auto) 2.8 Baso % (Auto) 0.7 Absolute Neuts (auto) 3.0 Absolute Lymphs (auto) 2.06 Nucleated RBC % 0 Sodium 139 Potassium 4.5 Chloride 103 Carbon Dioxide 24.9 Anion Gap 11 BUN 16 Creatinine 1.08 Estim Creat Clear Calc 72.79 Est GFR (MDRD) Non-Af 74 BUN/Creatinine Ratio 14.4 Glucose 114 H Calcium 9.5 Troponin T High Sens 11 Urine Color Yellow Urine Clarity Clear Urine pH 6.0 Ur Specific Hampton 1.010 Urine Protein Negative Urine Glucose (UA) Normal Urine Ketones Negative Urine Occult Blood 10 H Urine Nitrite Negative Urine Bilirubin Negative Urine Urobilinogen Normal Ur Leukocyte Esterase Negative Urine RBC 0 SEEN Urine WBC 0 SEEN Ur Squamous Epith Cells 0 SEEN Urine Bacteria 0 SEEN Urine Mucus 0 SEEN Radiography Diagnostic Testing: Clinical Impression(s) from Imaging Studies Brain CT 07/22/24 09:31 IMPRESSION: NORMAL NONCONTRAST HEAD CT. Reading Location: [facility] Chest X-Ray 07/22/24 10:05 IMPRESSION: No acute process is identified in the chest. Reading Location: [facility] Discharge Plan Triage Chief Complaint: Dizziness ED Provider: Ted Mendez Dx/Rx/DC Orders Instructions: ED Dizziness, Uncertain Cause Prescriptions: No Action atorvastatin 10 mg tablet 10 mg PO DAILY lisinopril 20 mg tablet 20 mg PO DAILY Primary Care Provider: Suresh Olivares Referrals: Suresh Olivares MD [Primary Care Provider] - 3-5 Days Activity Restrictions/Additional Instructions: Follow-up with primary care physician. Return back to the ED if symptoms changeor worsen. Make sure that you are eating meals and drinking plenty of water. Print Language: Tajik Disposition Disposition: Home, Self Care What to do if you have Problems For any increased pain, shortness of breath, bleeding, nausea or vomiting, chestpain, or any unexpected problems, contact your Primary Care Provider. Call [facility] ([phone]) or report to the closest Emergency Room. Call 911 if necessary. 07/22/24 1137 <Electronically signed by Ted Mendez DO> Cosigner Signature (if applicable): CC: Dr. 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, unspecified site, extranodal and solid organ sites Muscle cramping Cramp of limb Onychomycosis Dermatophytosis of nail [facility]* Diagnosis Primary hypertension- Primary Unspecified essential hypertension Hyperglycemia Other abnormal glucose Mixed hyperlipidemia Abrasion of left hand, subsequent encounter Encounter for immunization Need for other specified prophylactic vaccination against single bacterial disease [facility] Diagnosis Primary hypertension- Primary Unspecified essential hypertension 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, unspecified site, extranodal and solid organ sites Onychomycosis Dermatophytosis of nail [facility] noteNo assessment information [facility] Work Phone: Evaluation note* Diagnosis Hyperglycemia- Primary Other abnormal glucose Primary hypertension Unspecified essential hypertension Mixed hyperlipidemia [facility]* Diagnosis Primary hypertension Unspecified essential hypertension [facility] Diagnosis Primary hypertension- Primary Unspecified essential hypertension Mixed hyperlipidemia Hyperglycemia Other abnormal glucose Primary cutaneous lymphoma (HCC) Mycosis fungoides, unspecified site, extranodal and solid organ sites Obstructive sleep apnea Obstructive sleep apnea (adult) (pediatric) Melanocytic nevi of face Benign neoplasm of skin of other and unspecified parts of face 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, unspecified site, extranodal and solid organ sites documented [facility]* Diagnosis 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, unspecified site, 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, unspecified site, extranodal and solid organ sites Seborrheic keratosis Other seborrheic keratosis Multiple benign nevi Benign neoplasm of skin, site unspecified Shukla angioma Nevus, non-neoplastic Lentigines Other dyschromia Epidermoid cyst Sebaceous cyst Achrochordon Unspecified hypertrophic and atrophic condition of skin [facility]* Diagnosis Herpes zoster without complication- Primary Herpes zoster without mention of complication [facility] [facility]* Diagnosis Pain- Primary Generalized pain [facility] Diagnosis Primary hypertension- Primary Unspecified essential hypertension 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, unspecified site, extranodal and solid organ sites Onychomycosis Dermatophytosis of nail Primary hypertension Unspecified essential hypertension documented [facility] this encounter [facility]* Diagnosis Primary hypertension- Primary Unspecified essential hypertension 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, unspecified site, extranodal and solid organ sites Onychomycosis Dermatophytosis of nail 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, unspecified site, extranodal and solid organ sites Screening for depression Encounter for screening examination for other mental health and behavioral disorders Hyperglycemia Other abnormal glucose Mixed hyperlipidemia Primary hypertension Unspecified essential hypertension Primary cutaneous lymphoma (HCC) Mycosis fungoides, unspecified site, extranodal and solid organ sites Obesity, Class I, BMI 30-34.9 Obesity, unspecified documented in this encounter [facility]* Diagnosis Chest pain, unspecified type Primary hypertension- Primary Unspecified essential hypertension 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, unspecified site, extranodal and solid organ sites Onychomycosis Dermatophytosis of nail documented in this encounter [facility] Diagnosis Primary hypertension- Primary Unspecified essential hypertension 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, unspecified site, extranodal and solid organ sites Onychomycosis Dermatophytosis of nail Primary hypertension Unspecified essential hypertension documented in this encounter [facility]* Diagnosis Primary hypertension- Primary Unspecified essential hypertension 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, unspecified site, extranodal and solid organ sites Onychomycosis Dermatophytosis of nail Mixed hyperlipidemia [facility] Diagnosis Primary hypertension- Primary Unspecified essential hypertension Mixed hyperlipidemia Obstructive sleep apnea Obstructive sleep apnea (adult) (pediatric) Obesity, Class I, BMI 30-34.9 Obesity, unspecified Hyperglycemia Other abnormal glucose Tremor Abnormal involuntary movements Skin cancer screening Screening for malignant neoplasm of the skin History of primary cutaneous lymphoma Chronic right shoulder pain Pain in joint, shoulder region [facility] Diagnosis Chronic right shoulder pain Pain in joint, shoulder region [facility] Diagnosis Light headed- Primary Dizziness and giddiness [facility] Diagnosis Hypothyroidism, unspecified type- Primary documented in this encounter [facility]* Diagnosis Skin exam, screening for cancer- Primary Screening for malignant neoplasm of the skin 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, unspecified site, 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, unspecified site, extranodal and solid organ sites Neoplasm of skin Neoplasm of unspecified nature of bone, soft tissue, and skin Multiple benign nevi Benign neoplasm of skin, site unspecified Lentigines Other dyschromia Shukla angioma Nevus, non-neoplastic Seborrheic keratosis Other seborrheic keratosis documented in this encounter [facility]* Diagnosis Hypothyroidism, acquired- Primary Unspecified hypothyroidism [facility] Additional Instructions Follow-up with primary care physician. Return back to the ED if symptoms change or worsen. Make sure that you are eating meals and drinking plenty of water.[facility] Work Phone: Reason for referral (narrative)No reason for referral information availableWBucy[facility] Work Phone: Reason for visit Narrative* Diagnostic Procedure Only (Routine) - Closed Specialty Diagnoses / Procedures Referred By Reyna haas Referred To Contact XR IMAGING Diagnoses Chronic right shoulder pain Procedures XR SHOULDER GENERAL 3V OR MORE AP/TRUE AP/OTHER RIGHT RADEX SHOULDER COMPLETE MINIMUM 2 VIEWS Suresh Olivares MD [address] [place] [address] Phone: tel: fax: [place] [address] Referral ID Status Reason Start Date Expiration Date V isits Requested Visits Authorized [id number] Closed Auto-Generate d Referral 07/09/2024 08/08/2025 1 1 [facility] Summary Purpose Family History No Family History Records FoundNo Family History Records FoundNo Family History Records Found Advance Directives No Advanced Directives Records FoundDocuments on File Type Date Recorded 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 No July 22, 2024 9:32am Reason for Referral Specialty Diagnoses / Procedures Referred By Reyna haas Referred To Contact Dermatology Diagnoses Primary cutaneous lymphoma (HCC) Procedures CONSULT TO DERMATOLOGY Suresh Oilvares MD [address] [place] [address] Referral ID Status Reason Start Date Expiration Date Visits Requested Visits Authorized [id number] Ref Not Required PCP Requested Referral 05/16/2023 05/15/2024 1 1 Specialty Diagnoses / Procedures Referred By Contac t Referred To Contact Diagnoses Primary hypertension Suresh Olivares MD [address] [place] [address] Referral ID Status Reason Start Date Expiration Date Visits Re quested Visits Authorized [id number] Closed 1 1 Chief Complaint and Reason for Visit Chief Complaint Admit Date dizziness July 22, 2024 9:14a m Additional Source Comments (unrecognized sect ion and content) No Status Records FoundNo Status Records FoundNo Status Records Found INFORMATION SOURCE (unrecogn ized section and content) DATE CREATED AUTHOR 09/06/2017 [facility] DATE CREATED AUTHOR AUTHOR'S ORGANIZ ATION 08/02/2024 [facility] DATE CREATED AUTHOR AUTHOR'S ORGANIZ ATION 09/27/2024 [facility] Source Comments (unrecognize d section and content) In the event this informatio n is protected by the Federal Confidentiality of Alcohol and Drug Abuse Patient Records regulations: The Federal rules restrict any use of the information to criminally investigate or prosecute any alcohol or drug abuse patient.[facility] the event this information is protected by the Federal Confidentiality of Alcohol and Drug Abuse Patient Records regulations: The Federal rules restrict any use of the information to criminally investigate or prosecute any alcohol or drug abuse patient.[facility] SystemIn the event this information is protected by the Federal Confidentiality of Alcohol and Drug Abuse Patient Records regulations: The Federal rules restrict any use of the information to criminally investigate or prosecute any alcohol or drug abuse patient.[facility] SystemIn the event this information is protected by the Federal Confidentiality of Alcohol and Drug Abuse Patient Records regulations: The Federal rules restrict any use of the information to criminally investigate or prosecute any alcohol or drug abuse patient.[facility] SystemIn the event this information is protected by the Federal Confidentiality of Alcohol and Drug Abuse Patient Records regulations: The Federal rules restrict any use of the information to criminally investigate or prosecute any alcohol or drug abuse patient.[facility] SystemIn the event this information is protected by the Federal Confidentiality of Alcohol and Drug Abuse Patient Records regulations: The Federal rules restrict any use of the information to criminally investigate or prosecute any alcohol or drug abuse patient.[facility] SystemIn the event this information is protected by the Federal Confidentiality of Alcohol and Drug Abuse Patient Records regulations: The Federal rules restrict any use of the information to criminally investigate or prosecute any alcohol or drug abuse patient.[facility] SystemIn the event this information is protected by the Federal Confidentiality of Alcohol and Drug Abuse Patient Records regulations: The Federal rules restrict any use of the information to criminally investigate or prosecute any alcohol or drug abuse patient.[facility] SystemIn the event this information is protected by the Federal Confidentiality of Alcohol and Drug Abuse Patient Records regulations: The Federal rules restrict any use of the information to criminally investigate or prosecute any alcohol or drug abuse patient.[facility] SystemIn the event this information is protected by the Federal Confidentiality of Alcohol and Drug Abuse Patient Records regulations: The Federal rules restrict any use of the information to criminally investigate or prosecute any alcohol or drug abuse patient.[facility] SystemIn the event this information is protected by the Federal Confidentiality of Alcohol and Drug Abuse Patient Records regulations: The Federal rules restrict any use of the information to criminally investigate or prosecute any alcohol or drug abuse patient.[facility] SystemIn the event this information is protected by the Federal Confidentiality of Alcohol and Drug Abuse Patient Records regulations: The Federal rules restrict any use of the information to criminally investigate or prosecute any alcohol or drug abuse patient.[facility] SystemIn the event this information is protected by the Federal Confidentiality of Alcohol and Drug Abuse Patient Records regulations: The Federal rules restrict any use of the information to criminally investigate or prosecute any alcohol or drug abuse patient.[facility] SystemIn the event this information is protected by the Federal Confidentiality of Alcohol and Drug Abuse Patient Records regulations: The Federal rules restrict any use of the information to criminally investigate or prosecute any alcohol or drug abuse patient.[facility] SystemIn the event this information is protected by the Federal Confidentiality of Alcohol and Drug Abuse Patient Records regulations: The Federal rules restrict any use of the information to criminally investigate or prosecute any alcohol or drug abuse patient.[facility] SystemIn the event this information is protected by the Federal Confidentiality of Alcohol and Drug Abuse Patient Records regulations: The Federal rules restrict any use of the information to criminally investigate or prosecute any alcohol or drug abuse patient.[facility] SystemIn the event this information is protected by the Federal Confidentiality of Alcohol and Drug Abuse Patient Records regulations: The Federal rules restrict any use of the information to criminally investigate or prosecute any alcohol or drug abuse patient.[facility] SystemIn the event this information is protected by the Federal Confidentiality of Alcohol and Drug Abuse Patient Records regulations: The Federal rules restrict any use of the information to criminally investigate or prosecute any alcohol or drug abuse patient.[facility] SystemIn the event this information is protected by the Federal Confidentiality of Alcohol and Drug Abuse Patient Records regulations: The Federal rules restrict any use of the information to criminally investigate or prosecute any alcohol or drug abuse patient.[facility] SystemIn the event this information is protected by the Federal Confidentiality of Alcohol and Drug Abuse Patient Records regulations: The Federal rules restrict any use of the information to criminally investigate or prosecute any alcohol or drug abuse patient.[facility] SystemIn the event this information is protected by the Federal Confidentiality of Alcohol and Drug Abuse Patient Records regulations: The Federal rules restrict any use of the information to criminally investigate or prosecute any alcohol or drug abuse patient.[facility] SystemIn the event this information is protected by the Federal Confidentiality of Alcohol and Drug Abuse Patient Records regulations: The Federal rules restrict any use of the information to criminally investigate or prosecute any alcohol or drug abuse patient.[facility] SystemIn the event this information is protected by the Federal Confidentiality of Alcohol and Drug Abuse Patient Records regulations: The Federal rules restrict any use of the information to criminally investigate or prosecute any alcohol or drug abuse patient.[facility] SystemIn the event this information is protected by the Federal Confidentiality of Alcohol and Drug Abuse Patient Records regulations: The Federal rules restrict any use of the information to criminally investigate or prosecute any alcohol or drug abuse patient.[facility] SystemIn the event this information is protected by the Federal Confidentiality of Alcohol and Drug Abuse Patient Records regulations: The Federal rules restrict any use of the information to criminally investigate or prosecute any alcohol or drug abuse patient.[facility] SystemIn the event this information is protected by the Federal Confidentiality of Alcohol and Drug Abuse Patient Records regulations: The Federal rules restrict any use of the information to criminally investigate or prosecute any alcohol or drug abuse patient.[facility] SystemIn the event this information is protected by the Federal Confidentiality of Alcohol and Drug Abuse Patient Records regulations: The Federal rules restrict any use of the information to criminally investigate or prosecute any alcohol or drug abuse patient.[facility] SystemIn the event this information is protected by the Federal Confidentiality of Alcohol and Drug Abuse Patient Records regulations: The Federal rules restrict any use of the information to criminally investigate or prosecute any alcohol or drug abuse patient.[facility] Reason for Visit (unrecogniz ed section and content) Reason Comments Results Reason Comments Biopsy B/L eye lids Specialty Diagnoses / Procedures Referred By Reyna t Referred To Contact Dermatology / DERMATOLOGY Diagnoses Bx removal eyelids Procedures EXC LESION EYELID W/O CLSR/W/SIMPLE DIR CLOSURE PROCEDURE Timi Garcia PA-C [address] [place] [address] Timi Garcia PA-C [address] [place] [address] Referral ID Status Reason Start Date Expiration Date Visits Re quested Visits Authorized [id number] Closed 10/19/2021 03/04/2022 1 1 Reason Comments 6 Month Exam Reason Comments Recheck 6 month follow up Reason Comments Recheck Blood pressure follo w up Reason Onset Date Comments Refill Request 04/10/2023 Reason Comments Hypertension Reason Comments Patient Question Reason Comments Skin Check Reason Comments Rash painful on left hip x 5 days Reason Comments Pain Pain in lower left q uadrant to left hip x 1.5 weeks Reason Onset Date Comments Refill Request 11/06/2023 Reason Onset Date Comments Refill Request 05/28/2024 Reason Onset Date Comments Refill Request 06/17/2024 Reason Comments Blood Pressure Doesn't treat BEE. N ever adjusted to CPAP and wondered about alt treatment advised there really isn't anything. Pain (Shoulder Pain) Right. Recalls no i njury. Hurts worse when reaches behind. nail problem Has tried several th ings nothing has worked. Reason Comments Full Body Skin Check Reason Onset Date Comments Results 09/26/2024 Care Teams (unrecognized sec tion and content) Geophysical Computer Relationship Specialty Start Date End Date Suresh Olivares MD [address] [place], [place] [id number] PCP - General Family Practice 04/26/12 Moreno Nathan MD, [address] [place], [place] [address] Physician Radiation Oncology 06/12/17 Myrna Olivas LISW Cloth Packer 04/12/18 Geophysical Computer Relationship Specialty Start Date End Date Suresh Olivares MD [address] [place] [address] PCP - General Family Practice 04/26/12 Moreno Nathan MD, [address] [place], [place] [address] [phone] Physician Radiation Oncology 06/12/17 Myrna Olivas RN Cloth Packer 04/12/18 Geophysical Computer Relationship Specialty Start Date End Date Suresh Olivares MD [address] [place], [place] [address] PCP - General Family Practice 04/26/12 Moreno Nathan MD, MD [address] [place] [place] [address] Physician Radiation Oncology 06/12/17 Myrna Olivas, RN Cloth Packer 04/12/18 Geophysical Computer Relationship Specialty Start Date End Date Suresh Olivares MD [address] [place] [address] PCP - General Family Medicine 04/26/12 Moreno Nathan MD, [address] [place] [address] Physician Radiation Oncology 06/12/17 Myrna Olivas, RN Cloth Packer 04/12/18 Geophysical Computer Relationship Specialty Start Date End Date Suresh Olivares MD [address] [place] [address] PCP - General Family Medicine 04/26/12 Moreno Nathan MD, [address] [place] [address] Physician Radiation Oncology 06/12/17 Myrna Olivas, RN Cloth Packer 04/12/18 Geophysical Computer Relationship Specialty Start Date End Date Suresh Olivares MD [address] [place] [address] PCP - General Family Medicine 04/26/12 Moreno Nathan MD, [address] [place] [address] Physician Radiation Oncology 06/12/17 Myrna Olivas, RN Cloth Packer 04/12/18 Team Status: Active Member Role Status Dates Dr. Suresh Olivares MD Primary Care Provider Active Team Status: Inactive Member Role Status Dates Dr. Suresh Olivares MD Primary Care Provider Active MICHELLE HOOPER DO Attending Provider, Referring Pr argenis Active Geophysical Computer Relationship Specialty Start Date End Date Suresh Olivares MD [address] [place] [address] PCP - General Family Medicine 04/26/12 Moreno Nathan MD, [address] [place] [address] Physician Radiation Oncology 06/12/17 Myrna Olivas, RN Cloth Packer 04/12/18 Geophysical Computer Relationship Specialty Start Date End Date Suresh Olivares MD [address] [place] [address] PCP - General Family Medicine 04/26/12 Moreno Nathan MD [address] [place] [address] Physician Radiation Oncology 06/12/17 Myrna Olivas RN Cloth Packer 04/12/18 Geophysical Computer Relationship Specialty Start Date End Date Suresh Olivares MD [address] [place] [address] PCP - General Family Medicine 04/26/12 Moreno Nathan MD [address] [place] [address] Physician Radiation Oncology 06/12/17 Myrna Olivas RN Cloth Packer 04/12/18 Geophysical Computer Relationship Specialty Start Date End Date Suresh Olivares MD [address] [place] [address] PCP - General Family Medicine 04/26/12 Moreno Nathan MD [address] [place] [address] Physician Radiation Oncology 06/12/17 Myrna Olivas, RN Cloth Packer 04/12/18 Geophysical Computer Relationship Specialty Start Date End Date Suresh Olivares MD [address] [place] [address] PCP - General Family Medicine 04/26/12 Moreno Nathan MD [address] [place] [address] Physician Radiation Oncology 06/12/17 Myrna Olivas RN Cloth Packer 04/12/18 Geophysical Computer Relationship Specialty Start Date End Date Suresh Olivares MD [address] [place] [address] PCP - General Family Medicine 04/26/12 Moreno Nathan MD [address] [place] [address] [place] [address] Physician Radiation Oncology 06/12/17 Myrna Oliavs RN Cloth Packer 04/12/18 Geophysical Computer Relationship Specialty Start Date End Date Suresh Olivares MD [address] [facility] [place] [address] PCP - General Family Medicine 04/26/12 Moreno Nathan MD [address] [place] [address] Physician Radiation Oncology 06/12/17 Myrna Olivas RN Cloth Packer 04/12/18 Geophysical Computer Relationship Specialty Start Date End Date Suresh Olivares MD [address] [facility] [place] [address] PCP - General Family Medicine 04/26/12 Moreno Nathan MD [address] [place] [address] Physician Radiation Oncology 06/12/17 Myrna Olivas, RN Cloth Packer 04/12/18 Geophysical Computer Relationship Specialty Start Date End Date Suresh Olivares MD [address] [facility] [place] [address] PCP - General Family Medicine 04/26/12 Moreno Nathan MD [address] [place] [address] Physician Radiation Oncology 06/12/17 Myrna Olivas RN Cloth Packer 04/12/18 Belinda Aceves, CIGAR HEAD HOLER.SUPERVISOR TAPING [address] [facility] [place] [address] Materials Planning Analyst Family Medicine 02/11/24 Joselyn Herman CIGAR HEAD HOLER.SUPERVISOR TAPING [address] [facility] [place] [address] Materials Planning Analyst Family Medicine 02/11/24 Geophysical Computer Relationship Specialty Start Date End Date Suresh Olivares MD [address] [facility] [place] [address] PCP - General Family Medicine 04/26/12 Moreno Nathan MD [address] [place] [address] Physician Radiation Oncology 06/12/17 Myrna Olivas RN Cloth Packer 04/12/18 Belinda Aceves, CIGAR HEAD HOLER.SUPERVISOR TAPING [address] [facility] [place] [address] [facility] 02/11/24 Joselyn Herman CIGAR HEAD HOLER.SUPERVISOR TAPING [address] [place], [place] [address] [facility] 02/11/24 Geophysical Computer Relationship Specialty Start Date End Date Suresh Olivares MD [address] [facility] [place] [address] PCP - General Family Medicine 04/26/12 Moreno Nathan MD [address] [place] [place] [address] Physician Radiation Oncology 06/12/17 Myrna Olivas, RN Cloth Packer 04/12/18 Belinda Aceves, CIGAR HEAD HOLER.SUPERVISOR TAPING [address] [facility] [place] [address] [facility] 02/11/24 Joselyn Herman CIGAR HEAD HOLER.SUPERVISOR TAPING [address] [facility] [place] [address] [facility] 02/11/24 Geophysical Computer Relationship Specialty Start Date End Date Suresh Olivares MD [address] [facility] [place] [address] PCP - General Family Medicine 04/26/12 Moreno Nathan MD [address] [place] [address] Physician Radiation Oncology 06/12/17 Myrna Olivas, RN Cloth Packer 04/12/18 Belinda Aceves, CIGAR HEAD HOLER.SUPERVISOR TAPING [address] [facility] [place] [address] [phone] [facility] 02/11/24 Joselyn Herman CIGAR HEAD HOLER.SUPERVISOR TAPING [address] [facility] [place] [address] [facility] 02/11/24 Geophysical Computer Relationship Specialty Start Date End Date Suresh Olivares MD [address] [facility] [place] [address] PCP - General Family Medicine 04/26/12 Moreno Nathan MD [address] [place] [place], [place] [address] Physician Radiation Oncology 06/12/17 Myrna Olivas, MERT Cloth Packer 04/12/18 Belinda Aceves APRN.SUPERVISOR TAPING [address] [facility] [place] [address] [facility] 02/11/24 Joselyn Herman CIGAR HEAD HOLER.SUPERVISOR TAPING [address] [facility] [place] [address] [facility] 02/11/24 Team Status: Inactive Member Role Status Dates Dr. Suresh Olivares MD Primary Care Provider Active Start: July 22, 2024 End: July 22, 2024 Dr. Ted Mendez DO Emergency Provider Activ e Start: July 22, 2024 End: July 22, 2024 Geophysical Computer Relationship Specialty Start Date End Date Suresh Olivares MD [address] [facility] [place], [place] [address] PCP - General Family Medicine 04/26/12 Moreno Nathan MD [address] [place] [place], [place] [address] Physician Radiation Oncology 06/12/17 Myrna Olivas, RN Cloth Packer 04/12/18 Belinda Aceves APRN.SUPERVISOR TAPING [address] [facility] [place] [address] [facility] [facility] 02/11/24 Joselyn Herman APRN.SUPERVISOR TAPING [address] [facility] [place] [place] [address] [facility] 02/11/24 Geophysical Computer Relationship Specialty Start Date End Date Suresh Olivares MD [address] [facility] [place] [address] PCP - General Family Medicine 04/26/12 Moreno Nathan MD [address] [place] [address] Physician Radiation Oncology 06/12/17 Myrna Olivas RN Cl[employer] 04/12/18 Belinda Aceves APRN.SUPERVISOR TAPING [address] [place], [place] [id number] [facility] 02/11/24 Joselyn Herman APRN.SUPERVISOR TAPING [address] [place] [address] [facility] 02/11/24 Goals (unrecognized section and content) Goals may be documented in a n alternate sectionGoals may be documented in an alternate section FOR RECORDS PERTAINING TO PATIENTS WHO ARE OR HAVE BEEN ENROLLED IN A CHEMICAL DEPENDENCY/SUBSTANCEABUSE PROGRAM, SOME INFORMATION MAY BE OMITTED. This clinical summary was aggregated from multiple sources. Caution should be exercised in using it in the provision of clinical care. This summary normalizes information from multiple sources, and as a consequence, information in this document may materially change the coding, format and clinical context of patient data. In addition, data may be omitted in some cases. CLINICAL DECISIONS SHOULD BE BASED ON THE PRIMARY CLINICAL RECORDS. [facility]. provides no warranty or guarantee of the accuracy or completeness of information in this document.
--- NOTE | 2025-02-14 11:58 | CM.ED ---
Social Work Date of referral: 02/14/25 Reason for referral: No Advanced Care Directives (ACD's) on file. Referred by: Social Work Identification Patient provided consent to social work visit. Patient's also in the room. Steel Rod Buster requested a copy of ACD's which patient agreed to bring in. Heather May, PLISSE MACHINE OPERATOR, COLLEGE PROFESSOR
[2025-02-14 12:30] VITALS: BP 143/86; PULSE 65; RESP 14; O2SAT 100
[2025-02-14 13:22] LABS: Troponin T High Sens 2 HR 9 ng/L (<=22)
[2025-02-14 14:14] VITALS: BP 132/78; PULSE 74; RESP 15; TEMP 36.8; O2SAT 100
== END 2025-02-14 14:21 | disposition home or self-care (01) ==
PROVIDERS: Emergency Provider Emergency Medicine; PCP Family Medicine; Visit Provider Emergency Medicine
DX: R42 Dizziness and giddiness (principal); S06.0X0A Concussion without loss of consciousness, initial encounter; I10 Essential (primary) hypertension; E78.5 Hyperlipidemia, unspecified; W19.XXXA Unspecified fall, initial encounter
CPT/HCPCS: 70450; 70496; 70498; 71045; 80053; 84484; 85025; 93005; 96361; 96374; 99284; Q9967; A4216